=== PATIENT | female | born 1970 | race Caucasian/White ===

== ENCOUNTER → 2020-05-23 15:07 | Outpatient (BNVA) | payer MEDICAID, SELFPAY | PROVIDERS: PCP Internal Medicine; Referring Provider Internal Medicine; Visit Provider Internal Medicine Cardiovascular Disease | DX: I25.10 Atherosclerotic heart disease of native coronary artery without angina pectoris (principal); R07.89 Other chest pain | CPT/HCPCS: 93005; 99212 ==

== ENCOUNTER → 2020-07-07 14:42 | Outpatient (BNVA) | payer MEDICAID, SELFPAY | PROVIDERS: PCP Internal Medicine; Visit Provider Internal Medicine Cardiovascular Disease ==

== ENCOUNTER → 2020-07-11 14:34 | Outpatient (BNVA) | payer MEDICAID, SELFPAY | PROVIDERS: PCP Internal Medicine; Visit Provider Nurse Practitioner Family | DX: M46.1 Sacroiliitis, not elsewhere classified (principal); M54.16 Radiculopathy, lumbar region | CPT/HCPCS: 99212 ==

== ENCOUNTER 2020-08-23 06:14 | Outpatient (REF) | payer MEDICAID, SELFPAY ==
--- NOTE | ~2020-08-23 | FL_ITS ---
EXAMINATION: XR FLUOROSCOPY WITH IMAGES CLINICAL INFORMATION: M46.1 - Sacroiliitis, not elsewhere classified COMPARISON: Fluoroscopy with images 04/28/2019 TECHNIQUE: Fluoroscopy performed by Rosy Prajapati NP. Fluoroscopy time: 0.3 minutes DAP: 3.34 Gycm2 Images: 2 FINDINGS: There are spinal needles overlying the lower aspect bilateral SI joints. There is likely some early intra-articular contrast and contrast in the overlying soft tissues. No vascular communication. FL/FL guidance in treatment room IMPRESSION: Fluoroscopy for pain management procedures.
== END 2020-08-23 06:15 | disposition home or self-care (01) ==
LOC: HO.RADIR 06:14
PROVIDERS: Visit Provider Anesthesiology
DX: M46.1 Sacroiliitis, not elsewhere classified (principal); M54.16 Radiculopathy, lumbar region
CPT/HCPCS: 27096; J3300; Q9967

== ENCOUNTER → 2020-09-15 08:25 | Outpatient (REF) | payer MEDICAID, SELFPAY ==
--- NOTE | ~2020-09-15 | NM_ITS ---
Lexiscan Myocardial perfusion study Indication: Chest pain, assess for coronary disease and ischemia Technique: The patient was brought in for a Lexiscan perfusion study on 09/15/2020 and was injected 0.4 mg of Lexiscan intravenously. Within a minute of this injection 30 mCi of sestamibi was given intravenously. Images were obtained using the SPECT gamma camera interlaced with the gating device. Images were obtained in supine position. Resting perfusion study was performed on 09/19/2020. Patient was administered 30 mCi of sestamibi intravenously at rest. Images were then obtained in supine position. Total DLP 166mGy-cm. Images were processed with the software and compared side to side in short axis, horizontal long axis and vertical long axis views. Findings: Raw acquisition was reviewed. Arms by the patient's side. The stress perfusion study showed diminished tracer uptake along the distal part of the inferolateral wall. With CT attenuation correction, this improves significantly suggestive of diaphragmatic attenuation artifact. The gated study shows normal LV systolic function with calculated LVEF of > 70%. LV cavity is normal in size. The gated study shows normal wall thickening and contraction of segments. Resting study shows no significant perfusion abnormality. Gating at rest reveals normal wall motion with ejection fraction at > 70%. The findings are consistent with no reversible or fixed perfusion abnormality. NM/NM frandy perf SPECT rest & str Impression: 1. Myocardial perfusion imaging study shows likely normal myocardial perfusion. No evidence of any ischemia or infarction. 2. Gated LVEF is > 70% during stress and rest. 3. Transient ischemic dilatation not present. EKG component of the test reported separately.
--- NOTE | 2020-09-15 08:29 | CA_ITS ---
Transthoracic Echocardiogram Patient (Last, First, Middle): Patti Avelar, Gender: Female Date of : 1970 Age: 50 Procedure Date: 09/15/2020 Procedure Type: Transthoracic Echocardiogram Location: OP Height: 170.18 cm Weight: 89.36 kg BSA: 2.01 m2 Heart Rate: bpm BP: 134 / 70 mmHg Firefighter Type One: MELANY Referring MD: Jordan Wiseman MD Symptoms: R07.89 - Other chest pain Study Quality: Technically Difficult Conclusions: - Essentially normal study with grade 1 LV diastolic dysfunction Findings Left Ventricle Normal left ventricular size, thickness, and systolic function. The visually estimated ejection fraction is between 60-65%. Spectral Doppler is indicative of an impaired relaxation filling pattern. E/E prime ratio is <8, consistent with normal filling pressures. Evidence suggests grade I (mild) diastolic dysfunction. Right Ventricle Normal right ventricular cavity size and systolic function. Atria Both atria are normal in size. There is no evidence of interatrial shunt. Aortic Valve Normal aortic valve structure and function. There is no aortic valve stenosis. There is no aortic valve regurgitation. Mitral Valve Normal mitral valve structure and function. There is trace mitral valve regurgitation. There is no mitral valve stenosis. Pulmonic Valve The pulmonic valve is likely normal. Tricuspid Valve Normal tricuspid valve structure. Tricuspid regurgitation envelope is inadequate for calculation of right ventricular systolic pressure. Great Vessels All visible segments of the aorta are normal in size. The pulmonary artery was not well visualized. Venous The inferior vena cava is normal in size and collapses greater than 50% with inspiration. Pericardium/Pleural There is no evidence of pericardial effusion. Prior Study Comparison No prior study available for comparison. Measurements M-Mode Liner Measurements Normals - Women/Men AOV Cusps: 2.30 1.5-2.6 cm/m2 2D Linear Measurements IVSd: 0.89 0.6-0.9/0.6-1.0 cm LVIDd: 2.96 3.9-5.3/4.2-5.9 cm LVIDd Index: 1.47 2.4-3.2/2.2-3.1 cm/m2 LVIDs: 1.69 2.0-3.6 cm LVPWd: 0.94 0.7-1.1 cm Ao Root: 3.00 2.1-3.5 cm LA Diam: 2.90 2.7-3.8/3.0-4.0 cm LAIDs Index: 1.44 1.5-2.3 cm/m2 LV Mass: 139.54 67-162/88-224 g LV Mass Index: 69.42 43-95/49-115 g/m2 LVOT Diam: 2.20 3.0+(-)1.3 cm 2D Systolic Function EF 4C: 64.00 >55% EF BiP: 56.70 >55% Mitral Valve MV Pk E: 0.95 MV PK A: 0.94 MV Decel Time: 285.00 E/A: 1.00 E'Lateral: 12.00 E'Medial: 8.27 E/E' Med: 11.50 E/E' Lat: 7.90 PHT: 83.00 MVA PHT: 2.65 Decel Bowman: 3.33 Aortic Valve AoV Pk Odin: 1.29 AoV Pk Grad: 7.00 LVOT LVOT Pk Odin: 1.09 LVOT Mn Odin: 0.69 LVOT VTI: 0.25 LVOT Pk Grad: 5.00 LVOT Mn Grad: 2.00 LVOT Diam: 2.20 LVOT Area: 3.80 Diastolic Function MV Pk E: 0.95 MV Pk A: 0.94 E/A: 1.00 E'Medial: 8.27 E/E' Med: 11.50 E' Laterial: 12.00 E/E' Lat: 7.90 Tricuspid Valve RA Press: 3.00 Great Vessels Aorta Ao Root-2D: 3.00 2.0-3.7 cm Ao Asc: 3.40 2.1-3.4 cm Ao Arch: 2.50 Pulmonary Valve PV Pk Odin: 0.96 Peak PV Grad: 4.00 Updated in Other Vendor System with Status of Final Jordan Wiseman MD electronically signed on 09/15/2020 1:51:12 PM with status of Final
--- NOTE | 2020-09-15 08:29 | CA_ITS ---
Acquisition Time: 2020-09-15 09:25:11 Total Exercise Time: 00:02:00 Test Indications: I25.10, R07.89 Medications: SEE CHART Protocol: LEXISCAN Max HR: 117 BPM 69% of Pred: 169 BPM Max BP: 124/070 mmHG Max Work Load: 1.0 METS Pharmacological stress test using Lexiscan while sitting and kicking her feet. Pt tolerated well, denies any anginal sx. EKG with no arrhythmias, non-diagnostic for ischemia. Nuclear images to follow. Normotensive response to test. Test reviewed with Dr. Underwood. Referred By: Jordan Wiseman Overread By: Lauryn Weiner NP
== END ==
LOC: HO.CARD 08:25
PROVIDERS: Visit Provider Internal Medicine Cardiovascular Disease
DX: R07.89 Other chest pain (principal); I25.10 Atherosclerotic heart disease of native coronary artery without angina pectoris; I10 Essential (primary) hypertension
CPT/HCPCS: 78452; 93017; 93306; A9500; J0280; J2785

== ENCOUNTER → 2020-09-22 13:46 | Outpatient (BNVA) | payer MEDICAID, SELFPAY | PROVIDERS: Visit Provider Nurse Practitioner Family ==

== ENCOUNTER → 2020-10-12 11:34 | Outpatient (BNVA) | payer MEDICAID, SELFPAY | PROVIDERS: PCP Internal Medicine; Visit Provider Nurse Practitioner Family ==

== ENCOUNTER → 2020-10-26 11:32 | Outpatient (BNVA) | payer MEDICAID, SELFPAY | PROVIDERS: PCP Internal Medicine; Visit Provider Nurse Practitioner Family | DX: R07.89 Other chest pain (principal); I25.10 Atherosclerotic heart disease of native coronary artery without angina pectoris; I10 Essential (primary) hypertension; E78.5 Hyperlipidemia, unspecified; Z95.5 Presence of coronary angioplasty implant and graft | CPT/HCPCS: 99212 ==

== ENCOUNTER 2021-04-04 14:34 | Outpatient (REF) | payer MEDICAID, SELFPAY ==
[2021-04-04 15:56] LABS: Hematocrit 41.4 % (37-47); Hemoglobin 13.4 g/dl (12.0-16.0); Mean Corpuscular HGB Conc 32.4 g/dl (31.0-35.0); Mean Corpuscular Hemoglobin 30.1 pg (27.0-33.0); Platelet Count 269 X10*3/uL (160-400); Red Blood Count 4.45 X10*6/uL (4.20-5.50); Red Cell Distribution Width 13.8 % (11.0-16.0); White Blood Count 9.8 X10*3/uL (4.8-10.8)
[2021-04-04 16:10] LABS: Prothrombin Time 11.8 SEC (9.9-13.0)
[2021-04-04 16:18] LABS: Anion Gap 15 (12-20); Blood Urea Nitrogen 9 mg/dL (9-16); Calcium 9.2 mg/dL (8.4-10.2); Carbon Dioxide 24 mmol/L (22-29); Chloride 103 mmol/L (96-108); Estimated Glomerular Filt Rate > 60; Glucose Random 252 mg/dL (60-115); Potassium 3.9 mmol/L (3.3-5.1); Sodium 138 mmol/L (135-145)
== END 2021-04-04 14:35 | disposition home or self-care (01) ==
LOC: HO.LAB 14:34
PROVIDERS: PCP Internal Medicine; Referring Provider Internal Medicine; Visit Provider Internal Medicine Cardiovascular Disease
DX: R07.9 Chest pain, unspecified (principal); I25.10 Atherosclerotic heart disease of native coronary artery without angina pectoris
CPT/HCPCS: 36415; 80048; 85027; 85610; 99212

== ENCOUNTER → 2021-04-25 14:31 | Outpatient (BNVA) | payer MEDICAID, SELFPAY | PROVIDERS: PCP Internal Medicine; Referring Provider Internal Medicine; Visit Provider Nurse Practitioner Family | DX: I25.10 Atherosclerotic heart disease of native coronary artery without angina pectoris (principal); I10 Essential (primary) hypertension; E78.5 Hyperlipidemia, unspecified; Z95.5 Presence of coronary angioplasty implant and graft; R07.9 Chest pain, unspecified; Z98.890 Other specified postprocedural states | CPT/HCPCS: 99212 ==

== ENCOUNTER → 2022-05-30 13:41 | Outpatient (BNVA) | payer MEDICAID, SELFPAY | PROVIDERS: PCP Internal Medicine; Visit Provider Anesthesiology | DX: M46.1 Sacroiliitis, not elsewhere classified (principal) | CPT/HCPCS: 99212 ==

== ENCOUNTER 2022-08-06 08:25 | Outpatient (REF) | payer MEDICAID, SELFPAY ==
--- NOTE | ~2022-08-06 | MM_ITS ---
EXAMINATION: MM SCREENING DIGITAL BREAST TOMOSYNTHESIS, BILATERAL CLINICAL INFORMATION: Screening. Asymptomatic. The lifetime risk of breast cancer based on the Tyrer-Cuzick Model is 8%. COMPARISON: Mammography: 01/26/2019, 12/27/2017 TECHNIQUE: Digital breast tomosynthesis is performed in both the craniocaudal and mediolateral oblique views along with computer-aided detection (CAD). Synthesized 2D images are generated from the tomosynthesis. Additional left MLO view is provided. FINDINGS: There are scattered areas of fibroglandular density (ACR BI-RADS breast composition Category b). Left breast has some ill-defined calcifications in a small chronic nodule mid lower inner quadrant. Patient will be recalled for additional imaging small chronic nodule mid lower inner quadrant. The remainder of the bilateral breasts show no significant mass or architectural abnormality or abnormal calcifications. The axilla and skin contours are unremarkable. MM/MM tomosynthesis screening BI IMPRESSION: Left: -Ill-defined calcifications within a small chronic nodule mid lower inner quadrant. Right: -No mammographic evidence of malignancy. ASSESSMENT: BI-RADS 0: Incomplete - Need Additional Imaging Evaluation RECOMMENDATION: 1. Additional views of the left breast (magnification CC, magnification LM). 2. Targeted ultrasound if warranted after review of the additional views. 3. Radiology department staff will contact the patient for additional imaging. This patient's information was entered into a reminder system with a target due date for their next mammogram.
== END 2022-08-06 08:26 | disposition home or self-care (01) ==
LOC: HO.MAMMO 08:25
PROVIDERS: PCP Internal Medicine; Visit Provider Internal Medicine
DX: Z12.31 Encounter for screening mammogram for malignant neoplasm of breast (principal)
CPT/HCPCS: 77063; 77067

== ENCOUNTER 2022-08-13 13:50 | Outpatient (REF) | payer MEDICAID, SELFPAY ==
--- NOTE | ~2022-08-13 | MM_ITS ---
EXAMINATION: MM DIAGNOSTIC DIGITAL MAMMOGRAPHY, LEFT US ULTRASOUND BREAST, LEFT CLINICAL INFORMATION: Recall from screening for ill-defined calcifications within a small chronic nodule mid lower inner left breast. COMPARISON: Mammography: 08/06/2022, 01/26/2019, 12/27/2017, ultrasound left breast 01/26/2019. TECHNIQUE: Digital mammography is performed in the following views: Magnification left CC, magnification left LM, magnification left MLO. Ultrasound left breast is targeted to the lower and inner quadrants. Grayscale imaging and color Doppler are performed without and with harmonics. FINDINGS: There are scattered areas of fibroglandular density (ACR BI-RADS breast composition Category b). The magnification views show a few small round calcifications within the chronic nodule lower inner left breast. No layering of calcifications. No developing density. Ultrasound left breast demonstrates a 3 mm acorn cyst 9:00 position 6 cm from nipple possibly ultrasound correlate. No associated color flow. Results are discussed with the patient at time of visit. Management plan is for short interval diagnostic left mammography to include magnification views in 6 months. Ultrasound if warranted. MM/MM tomosynthesis added views L IMPRESSION: -Small probable benign calcifications within the chronic nodule lower inner left breast. -Small acorn cyst on targeted ultrasound, possibly ultrasound correlate. ASSESSMENT: BI-RADS 3: Probably Benign RECOMMENDATION: Diagnostic left mammography in 6 months. This patient's information was entered into a reminder system with a target due date for their next mammogram.
== END 2022-08-13 13:51 | disposition home or self-care (01) ==
LOC: HO.MAMMO 13:50
PROVIDERS: Visit Provider Internal Medicine
DX: R92.1 Mammographic calcification found on diagnostic imaging of breast (principal)
CPT/HCPCS: 76642; 77061; 77065

== ENCOUNTER 2023-02-20 13:59 | Outpatient (REF) | payer MEDICAID, SELFPAY ==
--- NOTE | ~2023-02-20 | MM_ITS ---
EXAMINATION: MM DIAGNOSTIC DIGITAL BREAST TOMOSYNTHESIS, LEFT CLINICAL INFORMATION: 6 month follow-up for probably benign calcifications situated within a small oval nodule, left breast, lower inner quadrant. COMPARISON: Mammography: 08/13/2022, 08/06/2022, 01/26/2019, 12/27/2017. TECHNIQUE: Digital left breast tomosynthesis is performed in both the craniocaudal and mediolateral oblique views along with computer-aided detection (CAD). Synthesized 2D images are generated from the tomosynthesis. In addition, 2-D spot magnification left CC and LM views were performed. FINDINGS: There are scattered areas of fibroglandular density (ACR BI-RADS breast composition Category b). There is a stable and unchanged small oval density in the far lower inner quadrant left breast with some associated punctate microcalcifications, entirely unchanged from prior. Finding remains probably benign. No suspicious findings in the remainder of the left breast, with stable parenchymal pattern. MM/MM tomosynthesis diagnostic LT IMPRESSION: Stable benign calcifications within an underlying small oval density in the far lower inner quadrant of the left breast. Recommend six-month interval follow-up left breast mammography to include standard magnification views, when the patient is due for bilateral screening. ASSESSMENT: BI-RADS BI-RADS 3 - Probably benign finding(s) - 6 month follow-up suggested RECOMMENDATION: 6 Month F/U Results were provided to the patient at time of visit by the technologist. This patient's information was entered into a reminder system with a target due date for their next mammogram.
== END 2023-02-20 14:00 | disposition home or self-care (01) ==
LOC: HO.MAMMO 13:59
PROVIDERS: PCP Internal Medicine; Visit Provider Internal Medicine
DX: R92.1 Mammographic calcification found on diagnostic imaging of breast (principal)
CPT/HCPCS: 77061; 77065

== ENCOUNTER → 2023-02-20 14:00 | Outpatient (BNV) | payer MEDICAID, SELFPAY | PROVIDERS: PCP Internal Medicine; Visit Provider Radiology Diagnostic Radiology | DX: R92.1 Mammographic calcification found on diagnostic imaging of breast (principal) | CPT/HCPCS: 77061; 77065 ==

== ENCOUNTER 2023-03-13 | Outpatient (REF) | payer MEDICAID, SELFPAY ==
[2023-03-13 14:48] LABS: MANUAL DIFF FLAG NO
[2023-03-13 15:07] LABS: Basophils Absolute Auto 0.1 X10*3/uL (0.0-0.2); Basophils Percent Auto 0.9 % (0-2); Eosinophils Absolute Auto 0.3 X10*3/uL (0.0-0.4); Hematocrit 38.5 % (37.0-47.0); Hemoglobin 12.1 g/dl (12.0-16.0); Imm Gran Abs Auto 0.02 X10*3/uL (0.00-0.03); Imm Gran Pct Auto 0.2 % (0.0-0.4); Lymphocytes Absolute Auto 2.2 X10*3/uL (1.2-4.9); Lymphocytes Percent Auto 24.6 % (20-40); Mean Corpuscular HGB Conc 31.4 g/dl (31.0-35.0); Mean Corpuscular Hemoglobin 29.4 pg (27.0-33.0); Mean Corpuscular Volume 93.4 fL (80.0-98.0); Mean Platelet Volume 10.3 fL (9.4-12.3); Monocytes Absolute Auto 0.5 X10*3/uL (0.1-1.2); Monocytes Percent Auto 5.5 % (2-11); Neutrophils Percent Auto 65.8 % (45-73); Platelet Count 308 X10*3/uL (160-400); Red Blood Count 4.12 X10*6/uL (4.20-5.50); Red Cell Distribution Width 13.3 % (11.0-16.0)
[2023-03-13 15:19] LABS: Alanine Aminotransferase 30 U/L (0-31); Albumin Level 4.4 g/dL (3.5-5.0); Alkaline Phosphatase 76 U/L (39-117); Anion Gap 13 (12-20); Aspartate Amino Transferase 23 U/L (5-31); Bilirubin Direct 0.2 mg/dL (0.0-0.5); Bilirubin Total 0.4 mg/dL (0.0-1.0); Blood Urea Nitrogen 17 mg/dL (9-16); Calcium 9.5 mg/dL (8.4-10.2); Carbon Dioxide 26 mmol/L (22-29); Chloride 106 mmol/L (96-108); Estimated Glomerular Filt Rate 47; Glucose Random 182 mg/dL (60-115); Sodium 141 mmol/L (135-145); Total Protein 7.4 g/dL (6.5-8.0)
[2023-03-13 15:26] LABS: Estimated Average Glucose 229 mg/dL; Hemoglobin A1c % 9.6 % (<6.0)
[2023-03-13 15:58] LABS: Erythrocyte Sedimentation Rate 12 MM/HR (0-20)
== END 2023-03-13 00:01 ==
LOC: HO.CHCLDS
PROVIDERS: Visit Provider Internal Medicine
DX: E11.65 Type 2 diabetes mellitus with hyperglycemia (principal); M54.16 Radiculopathy, lumbar region; Z79.4 Long term (current) use of insulin
CPT/HCPCS: 36415; 80048; 80076; 83036; 85025; 85652; 86704; 86706; 86709; 87340

== ENCOUNTER 2023-06-27 11:01 | Outpatient (REF) | payer MEDICAID, SELFPAY ==
--- NOTE | ~2023-06-27 | XR_ITS ---
EXAMINATION: XR LUMBOSACRAL SPINE CLINICAL INFORMATION: Bilateral low back pain COMPARISON: None available. TECHNIQUE: Three views of the lumbosacral spine. FINDINGS: 5 nonrib-bearing lumbar-type vertebral bodies. No acute visible fracture or dislocation. Slight levocurvature of the mid lumbar spine. Mild to moderate multilevel degenerative changes disc space narrowing, osteophyte formation, and facet arthropathy. Suggestion of L5-S1 neuroforaminal narrowing. Vertebral body heights and disc spaces are maintained. Posterior elements are intact. Paraspinal soft tissues are unremarkable. Visualized bowel gas is unremarkable. Pelvic phleboliths are noted. Oval radiopacity in the left pelvis measuring 2.0 cm, nonspecific. XR/XR lumbar spine 2-3V IMPRESSION: 1. No acute visible fracture or dislocation. 2. Slight levocurvature of the mid lumbar spine. 3. Mild to moderate multilevel degenerative changes with suggestion of L5-S1 neuroforaminal narrowing.
== END 2023-06-27 11:02 | disposition home or self-care (01) ==
LOC: HO.HHCX 11:01
PROVIDERS: Visit Provider Student in an Organized Health Care Education/Training Program
DX: M54.42 Lumbago with sciatica, left side (principal)
CPT/HCPCS: 72100

== ENCOUNTER 2023-09-02 13:08 | Outpatient (REF) | payer MEDICAID, SELFPAY ==
[2023-09-02 14:04] LABS: MANUAL DIFF FLAG NO
[2023-09-02 14:15] LABS: Basophils Absolute Auto 0.1 X10*3/uL (0.0-0.2); Eosinophils Absolute Auto 0.2 X10*3/uL (0.0-0.4); Eosinophils Percent Auto 2.2 % (0-4); Hematocrit 41.6 % (37.0-47.0); Hemoglobin 13.4 g/dl (12.0-16.0); Imm Gran Abs Auto 0.04 X10*3/uL (0.00-0.03); Imm Gran Pct Auto 0.4 % (0.0-0.4); Lymphocytes Absolute Auto 2.6 X10*3/uL (1.2-4.9); Lymphocytes Percent Auto 23.3 % (20-40); Mean Corpuscular HGB Conc 32.2 g/dl (31.0-35.0); Mean Corpuscular Hemoglobin 29.6 pg (27.0-33.0); Mean Platelet Volume 9.9 fL (9.4-12.3); Monocytes Absolute Auto 0.6 X10*3/uL (0.1-1.2); Monocytes Percent Auto 5.6 % (2-11); Neutrophils Absolute Auto 7.5 x10*3/uL (2.0-8.3); Neutrophils Percent Auto 67.5 % (45-73); Platelet Count 362 X10*3/uL (160-400); Red Blood Count 4.52 X10*6/uL (4.20-5.50); Red Cell Distribution Width 13.4 % (11.0-16.0); White Blood Count 11.1 X10*3/uL (4.8-10.8)
[2023-09-02 15:06] LABS: Alanine Aminotransferase 34 U/L (0-31); Albumin Level 4.6 g/dL (3.5-5.0); Alkaline Phosphatase 70 U/L (39-117); Anion Gap 14 (12-20); Aspartate Amino Transferase 26 U/L (5-31); Bilirubin Total 0.4 mg/dL (0.0-1.0); Blood Urea Nitrogen 16 mg/dL (9-16); Calcium 9.7 mg/dL (8.4-10.2); Carbon Dioxide 23 mmol/L (22-29); Chloride 107 mmol/L (96-108); Cholesterol 174 mg/dL (<200); Estimated Glomerular Filt Rate 48; Glucose Random 154 mg/dL (60-115); HDL Cholesterol 34 mg/dL (>40); LDL Cholesterol Calculated 83 mg/dL (<100); Sodium 140 mmol/L (135-145); Total Protein 7.7 g/dL (6.5-8.0); Triglycerides 286 mg/dL (<150)
[2023-09-02 15:25] LABS: TSH reflex Free T4 3.06 uIU/mL (0.32-4.0)
[2023-09-03 08:27] LABS: ~HepC Num1 0.08 S/CO (0.00-0.79); ~Hepatitis C Antibody Nonreactive (Nonreactive)
== END 2023-09-02 13:09 | disposition home or self-care (01) ==
LOC: HO.CHCLDS 13:08
PROVIDERS: Visit Provider Internal Medicine
DX: Z00.00 Encounter for general adult medical examination without abnormal findings (principal); E11.65 Type 2 diabetes mellitus with hyperglycemia; Z79.4 Long term (current) use of insulin
CPT/HCPCS: 36415; 80053; 80061; 84443; 85025; 86803

== ENCOUNTER 2024-04-15 09:39 | Outpatient (REF) | payer MEDICAID, SELFPAY ==
[2024-04-15 12:21] LABS: Estimated Average Glucose 226 mg/dL; Hemoglobin A1C 242.1095 umol/L; Hemoglobin A1c % 9.5 % (<6.0); Total Hemoglobin (HGBA1C) 3017.1307 umol/L
== END 2024-04-15 09:40 | disposition home or self-care (01) ==
LOC: HO.HHCL 09:39
PROVIDERS: Visit Provider Internal Medicine
DX: E11.65 Type 2 diabetes mellitus with hyperglycemia (principal); Z79.4 Long term (current) use of insulin
CPT/HCPCS: 36415; 83036

== ENCOUNTER → 2024-05-01 09:54 | Outpatient (REF) | payer MEDICAID, SELFPAY | LOC: HO.CARD 09:54 | PROVIDERS: PCP Internal Medicine; Visit Provider Nurse Practitioner Family | DX: Z13.89 Encounter for screening for other disorder (principal) ==

== ENCOUNTER 2024-08-27 14:51 | Outpatient (REF) | payer MEDICAID, SELFPAY ==
[2024-08-27 17:43] LABS: MANUAL DIFF FLAG NO
[2024-08-27 18:03] LABS: Basophils Absolute Auto 0.1 X10*3/uL (0.0-0.2); Basophils Percent Auto 1.1 % (0-2); Eosinophils Absolute Auto 0.2 X10*3/uL (0.0-0.4); Eosinophils Percent Auto 2.1 % (0-4); Hemoglobin 11.6 g/dl (12.0-16.0); Imm Gran Abs Auto 0.07 X10*3/uL (0.00-0.03); Imm Gran Pct Auto 0.6 % (0.0-0.4); Lymphocytes Absolute Auto 2.9 X10*3/uL (1.2-4.9); Lymphocytes Percent Auto 26.1 % (20-40); Mean Corpuscular HGB Conc 32.2 g/dl (31.0-35.0); Mean Corpuscular Hemoglobin 29.4 pg (27.0-33.0); Mean Corpuscular Volume 91.1 fL (80.0-98.0); Mean Platelet Volume 10.1 fL (9.4-12.3); Monocytes Absolute Auto 0.7 X10*3/uL (0.1-1.2); Monocytes Percent Auto 5.8 % (2-11); Neutrophils Absolute Auto 7.2 x10*3/uL (2.0-8.3); Neutrophils Percent Auto 64.3 % (45-73); Platelet Count 374 X10*3/uL (160-400); Red Blood Count 3.95 X10*6/uL (4.20-5.50); Red Cell Distribution Width 13.8 % (11.0-16.0); White Blood Count 11.2 X10*3/uL (4.8-10.8)
[2024-08-27 18:16] LABS: Alanine Aminotransferase 55 U/L (0-31); Albumin Level 4.4 g/dL (3.5-5.0); Alkaline Phosphatase 87 U/L (39-117); Anion Gap 14 (12-20); Aspartate Amino Transferase 49 U/L (5-31); Bilirubin Total 0.4 mg/dL (0.0-1.0); Blood Urea Nitrogen 23 mg/dL (9-16); Calcium 9.5 mg/dL (8.4-10.2); Carbon Dioxide 23 mmol/L (22-29); Chloride 106 mmol/L (96-108); Cholesterol 138 mg/dL (<200); Estimated Glomerular Filt Rate 40; Glucose Random 145 mg/dL (60-115); HDL Cholesterol 29 mg/dL (>40); LDL Cholesterol Calculated 52 mg/dL (<100); Potassium 4.1 mmol/L (3.3-5.1); Sodium 139 mmol/L (135-145); Total Protein 7.8 g/dL (6.5-8.0); Triglycerides 286 mg/dL (<150)
[2024-08-27 18:26] LABS: TSH reflex Free T4 2.06 uIU/mL (0.32-4.0)
--- OUTSIDE RECORDS SUMMARY | 2024-08-27 18:37 | XMS_ITS | Encounter Summary ---
Author Organization [employer] Address [address] [place] [id number] Care Team Providers Care Electroplating Sales Representative Name Role Phone Ann Castellon MD Primary Care Provider [phone] Reason for Visit * Reason Onset Date Comments returning call 06/25/2022 Encounter Details Date Type Department Care Team ([facility] st Contact Info) Description 06/25/2022 Telephone [facility] [address], [place] [phone] Ann Castellon MD [address] [place] [phone] returning call Social History Tobacco Use Types Packs/Day Years Used Date Smoking Tobacco: Never Assessed Comments Unknown Sex and Gender Information Value Date Recorded Sex Assigned at Female 04/16/2022 10:19 AM EDT Legal Sex Female 10:19 AM EDT Gender Identity Female 04/16/2022 10:19 AM EDT Sexual Orientation Straight 04/16/2022 10 :19 AM EDT documented as of this encounter Miscellaneous Notes * Telephone Encounter - Atul Naylor - 06/25/2022 10:47 AM EST Tc from pt returning call Please contact pt at [phone] documented in this encounter Plan of Treatment Not on file documented as of this encounter Visit Diagnoses Not on filedocumented in this encounter Care Teams Electroplating Sales Representative Relationship Specialty Start Date End Date Ann Castellon MD [address] [place] [address] PCP - General Internal Medicine 05/29/17 documented as of this encounter
--- OUTSIDE RECORDS SUMMARY | 2024-08-27 18:37 | XMS_ITS | Encounter Summary ---
Author Organization [employer] Address [address] [facility] [address] [place] [address] Care Team Providers Care Examiner Of Currency Name Role Phone Ann Castellon MD Primary Care Provider [phone] Encounter Details Date Type Department Care Team (Late st Contact Info) Description 02/06/2023 Orders Only [facility] [address] [place], [place] [phone] Ann Castellon MD [address] [place] [address] Type 2 diabetes mellitus with hyperglycemia, with long-term current use of insulin ([facility]) (Primary Dx) Social History Tobacco Use Types Packs/Day Years Used Date Smoking Tobacco: Former Cigarettes 0.3 40 Smokeless Tobacco: Never Depression Answer Date Recorded Patient Health Questionnaire-9 Score 2 07/03/2022 Depression Answer Date Recorded Patient Health Questionnaire-2 Score 0 07/03/2022 Comments Unknown Sex and Gender Information Value Date Recorded Sex Assigned at Female 04/16/2022 10:19 AM EDT Legal Sex Female 10:19 AM EDT Gender Identity Female 04/16/2022 10:19 AM EDT Sexual Orientation Straight 04/16/2022 10 :19 AM EDT documented as of this encounter Miscellaneous Notes * Result Encounter Note - Ann Castellon MD - 02/06/2023 4:26 PM EDT Please schedule the annual physical of Ms Patti Avelar. She is overdue for many of her care gaps. documented in this encounter Plan of Treatment Not on file documented as of this encounter Procedures Procedure Name Priority Date/Time Associated Diagnosis Comments HEMOGLOBIN A1C Routine 03/13/2023 10:46 AM EDT Type 2 diabetes mellitus with hyperglycemia, with long-term current use of insulin ([facility]) BI MAMMOGRAM DIAGNOSTIC TOMOSYNTHESIS LEFT Routine 02/20/2023 2:20 PM EDT documented in this encounter Results * (ABNORMAL) Hemoglobin A1c (03/13/2023 10:46 AM EDT) Hemoglobin A1c 9.6(H) <6.0 % [facility] Comment:Hemoglobin A1C Refer ence Range Adults: 4.8 - 6.0 % Non diabetic: < 6.0 % Goal: < 7.0 %Additional Action Suggested: > 8.0 %Note: Hemoglobin A1c results are invalid for patients with abnormal amounts of HbF. Blood transfusions may impact the HbA1c concentration in the patient sample. Estimated Average Glucose 229 mg/dL [facility] Comment:eAG = Estimated ave rage glucose which is %A1C expressed asaverage glucose, using the formula of the E5G-HtnrcdiDwdjsmr Glucose study (ADAG), Diabetes Care, Vol.31,#8,Aug. 2007 Blood Venous blood specimen / Unknown 03/13/2023 10:46 AM EDT 03/13/2023 2:42 PM EDT Ann Castellon MD LAB BLOOD ORDERABLES Final Result [facility] [address] [place] [phone] * BI Mammogram Diagnostic Tomosynthesis Left (02/20/2023 2:20 PM EDT) Anatomical Region Laterality Modality Breast Left Mammography 02/20/2023 2:20 PM EDT Narrative 02/20/2023 2:44 PM EDT ? [facility] ? [address] ?[place] [address] ? Mammography Report ? Signed ? Patient: Avelar,Patti ?MR#: [id number] ?? 57 ? : 1970 ?Acct:[id number] ? Age/Sex: 52 / F ?ADM Date: 02/20/23 ? Loc: HO.MAMMO ? Attending Dr: Ann Castellon MD ? Ordering Physician: Ann Castellon MD ?Results: 3.6MProbably Benign Finding - Short 6 M F/U ?? Suggested ? Date of Service: 02/20/23 ?Follow Up: 6 Month F/U ? Procedure(s): MM tomosynthesis diagnostic LT ?? Accession Number(s): [id number] ? cc: Ann Castellon MD ? EXAMINATION: ?? MM DIAGNOSTIC DIGITAL BREAST TOMOSYNTHESIS, LEFT ? CLINICAL INFORMATION: ? 6 month follow-up for probably benign calcifications situated within a ?? small oval nodule, left breast, lower inner quadrant. ? COMPARISON: ?? Mammography: 08/13/2022, 08/06/2022, 01/26/2019, 12/27/2017. ? TECHNIQUE: ?? Digital left breast tomosynthesis is performed in both the craniocaudal ?? and mediolateral oblique views along with computer-aided detection ?? (CAD). Synthesized 2D images are generated from the tomosynthesis. In ?? addition, 2-D spot magnification left CC and LM views were performed. ? FINDINGS: ?? There are scattered areas of fibroglandular density (ACR BI-RADS breast ?? composition Category b). ? There is a stable and unchanged small oval density in the far lower ?? inner quadrant left breast with some associated punctate ?? microcalcifications, entirely unchanged from prior. ??Finding remains ?? probably benign. ? No suspicious findings in the remainder of the left breast, with stable ?? parenchymal pattern. ? MM/MM tomosynthesis diagnostic LT ?? IMPRESSION: ?? Stable benign calcifications within an underlying small oval density in ?? the far lower inner quadrant of the left breast. Recommend six-month ?? interval follow-up left breast mammography to include standard ?? magnification views, when the patient is due for bilateral screening. ? ASSESSMENT: ? BI-RADS BI-RADS 3 - Probably benign finding(s) - 6 month follow-up ?? suggested ? RECOMMENDATION: ?? 6 Month F/U ? Results were provided to the patient at time of visit by the ?? technologist. ? This patient's information was entered into a reminder system with a ?? target due date for their next mammogram. ? Dictated By: ?Salomon Simpson MD ? Signed By: ?<Electronically signed by Salomon Simpson MD in OV> ?02/20/23 1440 ? DD/ 1420 ? TD/TT: ? Night Shift Manager: ? Procedure Note Jessica Dominguez - 02/21/2023 [facility] [address] [place] [address] Dr. Flores, ARNOLDO [address] Mammography Report Signed Patient: Patti AvelarMR#: [id number] 57 : 1970Acct:[id number] Age/Sex: 52 / FADM Date: 02/20/23 Loc: HO.MAMMO Attending Dr: Ann Castellon MD Ordering Physician: Ann Castellon MD Results: 3.6MProbably Benign Finding - Short 6 M F/U Suggested Date of Service: 02/20/23Follow Up: 6 Month F/U Procedure(s): MM tomosynthesis diagnostic LT Accession Number(s): [id number] cc: Ann Castellon MD EXAMINATION: MM DIAGNOSTIC DIGITAL BREAST TOMOSYNTHESIS, LEFT CLINICAL INFORMATION: 6 month follow-up for probably benign calcifications situated within a small oval nodule, left breast, lower inner quadrant. COMPARISON: Mammography: 08/13/2022, 08/06/2022, 01/26/2019, 12/27/2017. TECHNIQUE: Digital left breast tomosynthesis is performed in both the craniocaudal and mediolateral oblique views along with computer-aided detection (CAD). Synthesized 2D images are generated from the tomosynthesis. In addition, 2-D spot magnification left CC and LM views were performed. FINDINGS: There are scattered areas of fibroglandular density (ACR BI-RADS breast composition Category b). There is a stable and unchanged small oval density in the far lower inner quadrant left breast with some associated punctate microcalcifications, entirely unchanged from prior. Finding remains probably benign. No suspicious findings in the remainder of the left breast, with stable parenchymal pattern. MM/MM tomosynthesis diagnostic LT IMPRESSION: Stable benign calcifications within an underlying small oval density in the far lower inner quadrant of the left breast. Recommend six-month interval follow-up left breast mammography to include standard magnification views, when the patient is due for bilateral screening. ASSESSMENT: BI-RADS BI-RADS 3 - Probably benign finding(s) - 6 month follow-up suggested RECOMMENDATION: 6 Month F/U Results were provided to the patient at time of visit by the technologist. This patient's information was entered into a reminder system with a target due date for their next mammogram. Dictated By: Salomon Simpson MD Signed By: <Electronically signed by Salomon Simpson MD in OV> 02/20/23 1440 DD/ 1420 TD/TT: Night Shift Manager: us Ann Castellon MD IMG BI PROCEDURES Edited Re sult - Final documented in this encounter Visit Diagnoses Diagnosis Type 2 diabetes mellitus with hyperglycemia, with long-term current use of insulin ([facility])- Primary documented in this encounter Additional Health Concerns Assessment Noted Time PHQ-9 Depression Total Score: 2 07/03/19 23 10:01 AM EST documented as of this encounter Care Teams Examiner Of Currency Relationship Specialty Start Date End Date Ann Castellon MD [address] [place] [phone] PCP - General Internal Medicine 05/29/17 documented as of this encounter
--- OUTSIDE RECORDS SUMMARY | 2024-08-27 18:37 | XMS_ITS | Encounter Summary ---
Author Organization [employer] Address [address] [facility] 7[address] [place] [address] Care Team Providers Care Dry Transfer Worker Name Role Phone Ann Castellon MD Primary Care Provider [phone] Reason for Visit * Reason Comments Med Refill Encounter Details Date Type Department Care Team ([facility] st Contact Info) Description 08/05/2024 Refill [facility] CHC MED & PEDS [address] [place], [place] [phone] Ann Castellon MD [address] [place] [address] Hypercholesterolemia Social History Tobacco Use Types Packs/Day Years Used Date Smoking Tobacco: Every Day Cigarettes 0.3 40 Passive Smoke Exposure: Current Smokeless Tobacco: Never Comments:7-8 cigarettes a da y Alcohol Use Standard Drinks/Week Comments Never 0 (1 standard drink = 0.6 oz pur e alcohol) Depression Answer Date Recorded Patient Health Questionnaire-9 Score 9 04/29/2024 Patient Health Questionnaire-9 Score 9 04/29/2024 Last PHQ-9: Questionnaire Data Not on file 1 06/29/2023 Housing Stability Answer Date Recorded What is your housing situation today? I have joann hernandez 08/16/[address] you li ve. Do you have problems with any of the following? Pests such as bugs, ants, or mice 08/16/2023 Food Insecurity Answer Date Recorded Within the past 12 months, y ou worried that your food would run out before you got money to buy more: Never True 08/16/2023 Within the past 12 months,th e food you bought just didn't last and you didn't have enough money to get more: Never True 06/2023 Transportation Answer Date Recorded In the past 12 months, has l ack of transportation kept you from medical appts, meetings, work or from getting things needed for daily living? Yes, it has kept me from medical appointments or getting medications. 08/16/2023 Utilities Answer Date Recorded In the past 12 months, has t he electric, gas, oil or water company threatened to shut off services in your home? No 08/16/2023 Depression Answer Date Recorded Patient Health Questionnaire-2 Score 2 04/29/2024 Comments No Sex and Gender Information Value Date Recorded Sex Assigned at Female 04/16/2022 10:19 AM EDT Legal Sex Female 10:19 AM EDT Gender Identity Female 04/16/2022 10:19 AM EDT Sexual Orientation Straight 04/16/2022 10 :19 AM EDT documented as of this encounter Plan of Treatment Not on file documented as of this encounter Visit Diagnoses Diagnosis Hypercholesterolemia Pure hypercholesterolemia documented in this encounter Additional Health Concerns Assessment Noted Time PHQ-9 Depression Total Score: 9 04/29/20 24 10:50 AM EST documented as of this encounter Care Teams Dry Transfer Worker Relationship Specialty Start Date End Date Ann Castellon MD [address] [place] [id number] PCP - General Internal Medicine 05/29/17 documented as of this encounter
--- OUTSIDE RECORDS SUMMARY | 2024-08-27 18:37 | XMS_ITS | Encounter Summary ---
Author Organization [employer] Address [address] [facility] 7t [place] [address] Care Team Providers Care Buffing Machine Operator Semiautomatic Name Role Phone Ann Castellon MD Primary Care Provider [phone] Reason for Visit * Reason Comments Med Refill Encounter Details Date Type Department Care Team ([facility] st Contact Info) Description 08/07/2024 Refill [facility] MEDICINE [address] [place] [address] Ann Castellon MD [address] [place] [address] Social History Tobacco Use Types Packs/Day Years [...] Diagnoses Not on filedocumented in this encounter Additional Health Concerns Assessment Noted Time PHQ-9 Depression Total Score: 9 04/29/20 24 10:50 AM EST documented as of this encounter Care Teams Buffing Machine Operator Semiautomatic Relationship Specialty Start Date End Date Ann Castellon MD [address] [place] [id number] PCP - General Internal Medicine 05/29/17 documented as of this encounter
--- OUTSIDE RECORDS SUMMARY | 2024-08-27 18:37 | XMS_ITS | Encounter Summary ---
Author Organization [employer] Address [address] [facility] [address] [place] [address] Care Team Providers Care Zigzag Elastic Attacher Name Role Phone Ann Castellon MD Primary Care Provider [phone] Encounter Details Date Type Department Care Team (Latest Contact Info) Description 08/27/2024 Travel Social History Tobacco Use Types Packs/Day Years [...] housing situation today? I have joann hernandez 08/20/[address] you li ve. Do you have problems with any of the following? None of the above 08/20/2024 Food Insecurity Answer Date Recorded Within the past 12 months, y ou worried that your food would run out before you got money to buy more: Never True 08/20/2024 Within the past 12 months,th e food you bought just didn't last and you didn't have enough money to get more: Never True 11/2024 Transportation Answer Date Recorded In the past 12 months, has l ack of transportation kept you from medical appts, meetings, work or from getting things needed for daily living? No 08/20/2024 Utilities Answer Date Recorded In the past 12 months, has t he electric, gas, oil or water company threatened to shut off services in your home? No 08/20/2024 Depression Answer Date Recorded Patient Health Questionnaire-2 Score 2 04/29/2024 Internet Access Answer Date Recorded Internet Access Q1 Yes 08/20/2024 Internet Access Q2 Not on file 08/20/2024 Comments No Sex and Gender Information Value [...] documented as of this encounter Care Teams Zigzag Elastic Attacher Relationship Specialty Start Date End Date Ann Castellon MD [address] [place] [address] PCP - General Internal Medicine 05/29/17 documented as of this encounter
--- OUTSIDE RECORDS SUMMARY | 2024-08-27 18:37 | XMS_ITS | Encounter Summary ---
Author Organization [employer] Address [address] [place] [address] [address] [place] [address] Care Team Providers Care Box Maker Name Role Phone Ann Castellon MD Primary Care Provider [phone] Encounter Details Date Type Department Care Team (Late st Contact Info) Description 05/30/2022 Abstract [facility] MEDICINE [address] [place] [address] ProviderAnnabelle MD Social History Tobacco Use Types Packs/Day Years [...] on filedocumented in this encounter Care Teams Box Maker Relationship Specialty Start Date End Date Ann Castellon MD [address] [place] [address] PCP - General Internal Medicine 05/29/17 documented as of this encounter
--- OUTSIDE RECORDS SUMMARY | 2024-08-27 18:37 | XMS_ITS | Encounter Summary ---
Author Organization [employer] Address [address] [facility] 7t [place] [address] Care Team Providers Care Press Room Supervisor Name Role Phone Ann Castellon MD Primary Care Provider [phone] Reason for Visit * Reason Comments Med Refill Encounter Details Date Type Department Care Team ([facility] st Contact Info) Description 08/07/2024 Refill [facility] CHC MED & PEDS [address] [place], [place] [phone] Ann Castellon MD [address] [place] [address] Type 2 diabetes mellitus with diabetic polyneuropathy, with long-term current use of insulin ([facility]) Social History Tobacco Use Types Packs/Day Years [...] as of this encounter Visit Diagnoses Diagnosis Type 2 diabetes mellitus with diabetic polyneuropathy, with long-term current use of insulin ([facility]) documented in this encounter Additional Health Concerns Assessment Noted Time PHQ-9 Depression Total Score: 9 04/29/20 24 10:50 AM EST documented as of this encounter Care Teams Press Room Supervisor Relationship Specialty Start Date End Date Ann Castellon MD [address] [place] [address] PCP - General Internal Medicine 05/29/17 documented as of this encounter
--- OUTSIDE RECORDS SUMMARY | 2024-08-27 18:37 | XMS_ITS | Clinical Summary ---
Author Organization [employer] Address [address] [facility] [address] [place] [address] Care Team Providers Care Slurry Mixer Name Role Phone Ann Castellon MD Primary Care Provider [phone] Allergies No known active allergies Medications hydrOXYzine pamoate (Vistaril) 50 MG capsule Take 50 mg by mouth at bedtime. Active nicotine (Nicoderm, Step 3) 7 MG/24HR patch apply 1 patch by transdermal route every day Active nicotine polacrilex (Commit) 2 MG lozenge DISSOLVE ONE TABLET BY MOUTH EVERY 4 HOURS DIRECTED NEEDED. Active Salicylic Acid 3 % ointment To apply to the affected area once a day. Active venlafaxine XR (Effexor XR) 150 MG 24 hr capsule Take 150 mg by mouth in the morning. Active zolpidem (Ambien) 10 MG tablet Take 10 mg by mouth at bedtime. Active Continuous Blood Gluc Sensor (FreeStyle Dariusz 2 Sensor) [facility] Use as directed Active Continuous Blood Gluc [facility] (FreeStyle Dariusz 2 [place]) device Use as directed Active Diclofenac Sodium 1 % gelIndications:Ch ronic right shoulder pain To apply to the affected area 3 times a day 100 g 2 023 Active Diclofenac Sodium 1 % gelIndications:[place] mbar radiculopathy To apply to the affected area 3 times a day 100 g 023 Active famotidine (Pepcid) 20 MG tabletIndications :Gastroesophageal reflux disease without esophagitis Take 1 tablet (20 mg) by mouth 2 times daily. 60 tablet 11 Active Alcohol Swabs (Alcohol Prep) 70 % pads USE ONE DAILY 100 each 11 Active metFORMIN (Glucophage) 1000 MG tabletIndications :Type 2 diabetes mellitus with diabetic polyneuropathy (CMS/HCC) TAKE ONE TABLET TWICE DAILY IN THE MORNING AND AT BEDTIME 180 tablet 5 Active Pentips 32G X 4 MM misc USE ONE DAILY USE ONE DAILY 100 each 4 Active glipiZIDE (Glucotrol) 5 MG tabletIndications :Type 2 diabetes mellitus with diabetic polyneuropathy, with long-term current use of insulin (CMS/HCC) TAKE ONE TABLET THREE TIMES DAILY IN THE MORNING, AT NOON, AND AT BEDTIME BEFORE MEALS 270 tablet 2 Active metoprolol succinate XL (Toprol-XL) 25 MG 24 hr tabletIndications :Essential (primary) hypertension TAKE ONE TABLET EVERY MORNING 90 tablet 3 Active Aspirin Adult Low Strength 81 MG EC tablet TAKE ONE TABLET EVERY MORNING 90 tablet 3 Active hydrALAZINE (Apresoline) 10 MG tabletIndications :Essential (primary) hypertension TAKE ONE TABLET THREE TIMES DAILY IN THE MORNING, AT NOON, AND AT BEDTIME WITH FOOD 270 tablet 3 Active venlafaxine XR (Effexor XR) 75 MG 24 hr capsule Take 75 mg by mouth Once per day. Active clonazePAM (KlonoPIN) 1 MG tablet TAKE 1 TABLET BY MOUTH TWICE DAILY FOR ANXIETY Active divalproex (Depakote) 250 MG EC tablet TAKE 1 TABLET BY MOUTH TWICE DAILY DIRECTED Active Blood Glucose Monitoring Suppl (FreeStyle [place] Lite) w/Device kit TEST BLOOD SUGAR TWICE DAILY Active tiZANidine (Zanaflex) 2 MG tabletIndications :Muscle spasm Take 1 tablet (2 mg) by mouth every 6 (six) hours if needed for muscle spasms for up to 10 days. 30 tablet Active losartan-hydroCHL OROthiazide (Hyzaar) 100-25 MG tablet Take 1 tablet by mouth in the morning. 90 tablet 3 Active lidocaine (Lidoderm) 5 % patchIndications: Lumbar radiculopathy APPLY 1 PATCH TO SKIN. LEAVE ON FOR 12 HOURS, THEN OFF FOR 12 HOURS DIRECTED. 30 patch 2 Active ketorolac (Acular) 0.5 % ophthalmic solution Active loratadine (Claritin) 10 MG tablet TAKE ONE TABLET BY MOUTH EVERY MORNING 90 tablet 1 Active Lantus SoloStar 100 UNIT/ML penIndications:Ty pe 2 diabetes mellitus with hyperglycemia ([facility]) INJECT 40 UNITS SUBCUTANEOUSLY EVERY NIGHT AT BEDTIME 15 mL 11 Active amitriptyline (Elavil) 10 MG tabletIndications :Type 2 diabetes mellitus with diabetic polyneuropathy ([facility]) TAKE ONE TABLET EVERY NIGHT AT BEDTIME 30 tablet 5 024 Active atorvastatin (Lipitor) 80 MG tabletIndications :Hypercholesterol emia TAKE ONE TABLET EVERY MORNING 30 tablet Active fenofibrate micronized (LoFibra) 134 MG capsule TAKE ONE CAPSULE EVERY MORNING WITH FOOD 90 capsule 1 025 Active isosorbide mononitrate ER (Imdur) 60 MG 24 hr tablet TAKE ONE TABLET EVERY MORNING 90 tablet 3 025 Active FREESTYLE LITE test strip TEST BLOOD SUGAR THREE TIMES DAILY 250 strip 025 Active gabapentin (Neurontin) 800 MG tablet TAKE ONE TABLET THREE TIMES DAILY THREE TIMES DAILY IN THE MORNING, AT NOON, AND AT BEDTIME 90 tablet 2 025 Active Trulicity 4.5 MG/0.5ML solution auto-injectorIndi cations:Type 2 diabetes mellitus with diabetic polyneuropathy, with long-term current use of insulin ([facility]) INJECT ONE PEN (=4.5MG) SUBCUTANEOUSLY ONCE A WEEK DIRECTED 2 mL 025 Active cephalexin (Keflex) 500 MG capsuleIndication s:Paronychia of finger of right hand Take 1 capsule (500 mg) by mouth 3 times daily for 10 days. 30 capsule 025 2024 Active fluconazole (Diflucan) 150 MG tabletIndications :Paronychia of finger of right hand 1 tablet once for 2 weeks 2 tablet 025 Active bisacodyl (Dulcolax) 5 MG EC tabletIndications :Other constipation Take 1 tablet (5 mg) by mouth if needed each day for constipation. Do not crush, chew, or split. 30 tablet 025 2024 Active Trulicity 4.5 MG/0.5ML solution pen-injectorIndic ations:Type 2 diabetes mellitus with diabetic polyneuropathy, with long-term current use of insulin (CMS/HCC) Inject one pen (=4.5mg) subcutaneously once a week 4 mL 11 024 2024 Discontinued isosorbide mononitrate ER (Imdur) 60 MG 24 hr tablet TAKE ONE TABLET EVERY MORNING 90 tablet 3 024 2024 Discontinued FREESTYLE LITE test strip TEST BLOOD SUGAR THREE TIMES DAILY 250 strip 3 024 2024 Discontinued atorvastatin (Lipitor) 80 MG tabletIndications :Hypercholesterol emia Take 1 tablet (80 mg) by mouth in the morning. 30 tablet 11 024 2024 Discontinued fenofibrate micronized (Lofibra) 134 MG capsule TAKE ONE CAPSULE EVERY MORNING WITH FOOD 90 capsule 1 024 2024 Discontinued gabapentin (Neurontin) 800 MG tablet TAKE ONE TABLET THREE TIMES DAILY IN THE MORNING, AT NOON, AND AT BEDTIME 90 tablet 2 024 2024 Discontinued Active Problems Problem Noted Date Diagnosed Date Lumbar radiculopathy 05/30/2022 Raised TSH level 04/29/2020 Coronary artery disease invo lving [place] coronary artery of [place] heart without angina pectoris 11/13/2017 Hypercholesterolemia 11/13/2017 Chronic pain 09/16/2017 Shoulder pain 09/16/2017 Kidney stone 08/14/2017 Essential hypertension 07/10/2017 Type 2 diabetes mellitus 07/10/2017 Encounters Date Type Department Care Team Description 08/27/2024 2:00 PM EDT Office Visit [facility] [address] [place] [address] Ann Castellon MD Essential hypertension (Primary Dx); Type 2 diabetes mellitus with hyperglycemia, with long-term current use of insulin (CMS/HCC); Paronychia of finger of right hand; Dietary counseling; Exercise counseling; Encounter for immunization; Other constipation 08/27/2024 Travel 08/20/2024 Patient Outreach [facility] [address] [place] [address] Ann Castellon MD Pre-visit Planning (SDOH negative, Tobacco screening positive.) 08/07/2024 Refill [facility] [address] [place] [address] Ann Castellon MD Type 2 diabetes mellitus with diabetic polyneuropathy, with long-term current use of insulin ([facility]) 08/07/2024 Refill [facility] [address] [place] [address] Ann Castellon MD 08/05/2024 Refill [facility] [address] [place] [address] Ann Castellon MD Hypercholesterolemia 07/10/2024 Telephone [facility] [address] [place] [address] Ann Castellon MD recall appt (pe) 07/08/2024 Orders Only [facility] [address] [place] [address] Ann Castellon MD Essential hypertension (Primary Dx); Type 2 diabetes mellitus with hyperglycemia, with long-term current use of insulin ([facility]) 07/08/2024 Telephone [facility] [address] [place] [address] Ann Castellon MD 06/12/2024 Refill [facility] [address] [place] [address] Ann Castellon MD Type 2 diabetes mellitus with diabetic polyneuropathy ([facility]) from Last 3 Months Immunizations Name Administration Dates Next Due Hep B, adult 08/27/2024 Influenza injectable quadriv alent IIV4 with preservative 03/09/2019,03/20/2018,05/22/2017 Influenza injectable quadriv alent preservative free 03/15/2022,03/30/2021,04/01/2020 Moderna Covid-19 Vaccine 12+ 08/30/2020,08/02/19 21 Pneumococcal Conjugate PCV 20 08/27/2023 Pneumococcal Polysaccharide PPSV23 08/31/2019 Tdap 05/22/2017 Zoster, Recombinant 08/25/2021,02/07/2021 Family History Medical History Relation Name Comments Dementia Mother Breast cancer Mother's Sister Diabetes Other Hypertension Other Relation Name Status Comments Mother Mother's Sister Other Social History Tobacco Use Types Packs/Day Years Used Date Smoking Tobacco: Every Day Cigarettes 0.3 40 Passive Smoke Exposure: Current Smokeless Tobacco: Never Tobacco Cessation:Ready to Q uit: Not Asked Comments:7-8 cigarettes a day Alcohol Use Standard Drinks/Week Comments Never 0 [...] Orientation Straight 04/16/2022 10 :19 AM EDT Last Filed Vital Signs Vital Sign Reading Time Taken Comments Blood Pressure 100/62 08/27/2024 2:18 PM EDT Pulse 78 08/27/2024 2:18 PM EDT Temperature 37 ??C (98.6 ??F) 08/27/2024 2:18 PM EDT Respiratory Rate 18 08/27/2024 2:18 PM EDT Oxygen Saturation 98% 08/27/2024 2:18 PM EDT Inhaled Oxygen Concentration - - Weight 84.6 kg (186 lb 6.4 oz) 08/27/2024 2:18 P M EDT Height 169 cm (5' 6.54 ) 08/27/2024 2:18 PM EDT Body Mass Index 29.6 08/27/2024 2:18 PM EDT Plan of Treatment Health Maintenance Due Date Last Done Comments CT Colonography 1969 Colonoscopy 1969 FIT 1969 FOBT 1969 HIV Screening 1969 Sigmoidoscopy 1969 Pap Smear 1990 Cervical Cancer Screening 11/26/2022 HPV/Cotest 11/26/2022 11/26/2017 Diabetes: Urine Protein Screening 03/09/2023 03/09/2022 Diagnostic Breast Imaging 08/21/20232022, 08/13/2022, 01/26/2019 COVID-19 Vaccine ( season) 2024 08/30/2020, 08/02/2020 Influenza Vaccine (#1) 2024 , 03/30/2021, 04/01/2020, Additional history exists Diabetes: Foot Exam 08/26/2024 08/27/2023, 08/27/2023, 08/27/2023, Additional history exists Lipid Panel 09/01/2024 08/27/2024, 08/15, 03/09/2022 Hepatitis B Vaccines (2 of 3 - 19+ 3-dose series) 09/24/2024 08/27/2024 Depression Monitoring (PHQ-9) 10/27/2024 04/29/2024, 04/29/2024 Diabetes: Hemoglobin A1C 11/27/2024 025, 04/15/2024, 08/27/2023, Additional history exists Eye Exam 03/17/2025 03/17/2024, 06/2023, 03/17/2024, Additional history exists Alcohol/Substance Use Screening 04/29/2025 04/29/2024 Depression Screening 04/29/2025 04/29/2024, 04/29/20 SDOH Screening 08/20/2025 08/20/2024 Tobacco Screening 08/27/2025 08/27/2024 Colorectal Cancer Screening 10/08/2026 FIT DNA/Cologuard 10/08/2026 10/09/2023 DTaP/Tdap/Td Vaccines (2 - Td or Tdap) 05/22/2027 05/22/2017 RSV Patients and Patients Aged 60 years or older (1 - 1-dose 75+ series) 2044 Zoster Vaccines Completed 08/25/2021, 02/07/2021 Pneumococcal Vaccine: 50+ Years Completed 08/27/2023, 08/31/2019 Hepatitis C Screening Completed 09/02/2023 HIB Vaccines Aged Out No longer eligi ble based on patient's age to complete this topic HPV Vaccines Aged Out No longer eligi ble based on patient's age to complete this topic Hepatitis A Vaccines Aged Out No long er eligible based on patient's age to complete this topic IPV Vaccines Aged Out No longer eligi ble based on patient's age to complete this topic Meningococcal Vaccine Aged Out No dariana devika eligible based on patient's age to complete this topic RSV under 20 months Aged Out No longe r eligible based on patient's age to complete this topic Rotavirus Vaccines Aged Out No longer eligible based on patient's age to complete this topic Procedures Procedure Name Priority Date/Time Associated Diagnosis Comments TSH W/REFLEX TO FT4 Routine 08/27/2024 2 :52 PM EDT Essential hypertension Type 2 diabetes mellitus with hyperglycemia, with long-term current use of insulin ([facility]) COMPREHENSIVE METABOLIC PANEL Routine 08/27/2024 2:52 PM EDT Essential hypertension Type 2 diabetes mellitus with hyperglycemia, with long-term current use of insulin (CMS/HCC) LIPID PANEL, STANDARD Routine 08/27/2024 2:52 PM EDT Essential hypertension Type 2 diabetes mellitus with hyperglycemia, with long-term current use of insulin (CMS/HCC) CBC WITH AUTO DIFFERENTIAL Routine 08/27/2024 2:52 PM EDT Essential hypertension Type 2 diabetes mellitus with hyperglycemia, with long-term current use of insulin (CMS/HCC) POCT GLYCATED HEMOGLOBIN, TOTAL Routine 08/27/2024 2:42 PM EDT Type 2 diabetes mellitus with hyperglycemia, with long-term current use of insulin (CMS/HCC) POCT GLUCOSE Routine 08/27/2024 2:42 PM EDT Type 2 diabetes mellitus with hyperglycemia, with long-term current use of insulin (CMS/HCC) LAB COLOGUARD?? COLON CANCER SCREEN Routine 10/09/2023 10:30 AM EDT Screening for colon cancer HEPATITIS C ANTIBODY Routine 09/02/2023 1:10 PM EDT Type 2 diabetes mellitus with hyperglycemia, with long-term current use of insulin ([facility]) Annual physical exam BI MAMMOGRAM DIAGNOSTIC TOMOSYNTHESIS LEFT Routine 02/20/2023 2:20 PM EDT ALBUMIN, RANDOM URINE W/CREATININE Routine 03/09/2022 9:11 AM EDT ZZZ HISTORICAL HPV MRNA E6/E7 Routine 11/26/2017 3:33 PM EDT from Last 3 Months or Most Recently Relevant to Health Maintenance Results * TSH W/Reflex to FT4 (08/27/2024 2:52 PM EDT) TSH reflex Free T4 2.06 0.32 - 4.0 uIU/mL [facility] Blood Venous blood specimen / Unknown 08/27/2024 2:52 PM EDT 08/27/2024 5:37 PM EDT us Ann Castellon MD LAB BLOOD ORDERABLES Final Result [facility] [address] [place] [phone] [phone] * (ABNORMAL) CBC auto differential (08/27/2024 2:52 PM EDT) White Blood Count 11.2(H) 4.8 - 10.8 X10*3/uL [facility] Red Blood Count 3.95(L) 4.20 - 5.50 X10*6/uL [facility] Hemoglobin 11.6(L) 12.0 - 16.0 g/dl [facility] Hematocrit 36.0(L) 37.0 - 47.0 % [facility] Mean Corpuscular Volume 91.1 80.0 - 98.0 fL [facility] Mean Corpuscular Hemoglobin 29.4 27.0 - 33.0 pg [facility] Mean Corpuscular HGB Conc 32.2 31.0 - 35.0 g/dl [facility] Red Cell Distribution Width 13.8 11.0 - 16.0 % [facility] Platelet Count 374 160 - 400 X10*3/uL [facility] Mean Platelet Volume 10.1 9.4 - 12.3 fL [facility] Neutrophils Percent Auto 64.3 45 - 73 % [facility] Imm Gran Pct Auto 0.6(H) 0.0 - 0.4 % [facility] Lymphocytes Percent Auto 26.1 20 - 40 % [facility] Monocytes Percent Auto 5.8 2 - 11 % [facility] Eosinophils Percent Auto 2.1 0 - 4 % [facility] Basophils Percent Auto 1.1 0 - 2 % [facility] NRBC Pct Auto 0.0 0.0 - 0.2 /100WBC [facility] Neutrophils Absolute Auto 7.2 2.0 - 8.3 x10*3/uL [facility] Imm Gran Abs Auto 0.07(H) 0.00 - 0.03 X10*3/uL [facility] Lymphocytes Absolute Auto 2.9 1.2 - 4.9 X10*3/uL [facility] Monocytes Absolute Auto 0.7 0.1 - 1.2 X10*3/uL [facility] Eosinophils Absolute Auto 0.2 0.0 - 0.4 X10*3/uL [facility] Basophils Absolute Auto 0.1 0.0 - 0.2 X10*3/uL [facility] NRBC Abs Auto 0.000 0.0 - 0.012 X10*3/uL [facility] Blood Venous blood specimen / Unknown 08/27/2024 2:52 PM EDT 08/27/2024 5:37 PM EDT us Ann Castellon MD LAB BLOOD ORDERABLES Final Result [facility] [address] [place] [phone] * (ABNORMAL) Lipid Panel, Standard (08/27/2024 2:52 PM EDT) Triglycerides 286(H) <150 mg/dL [facility] Comment:Desirable Triglyceri de: less than 150 mg/dLBorderline High Triglyceride 150-199 mg/dLHigh Triglyceride: 200-499 mg/dLVery High Triglyceride: greater than or equal to 5OO mg/dL Cholesterol 138 <200 mg/dL [facility] Comment:Desirable Cholestero l: less than 200 mg/dLBorderline High Cholesterol: 200-239 mg/dLHigh Cholesterol: greater than 239 mg/dL LDL Cholesterol Calculated 52 <100 mg/dL [facility] Comment:Desirable LDL: less than 100 mg/dLNear Optimal/Above Optimal LDL: 110- 129 mg/dLBorderline High LDL: 130-159 mg/dLHigh LDL: 160-189 mg/dLVery High LDL: greater than or equal to 190 mg/dL HDL Cholesterol 29(L) >40 mg/dL [facility] Comment:Desirable HDL: great er than 40 mg/dL Note: This HDL assay may give artificially low results in patients with liver disease. Blood Venous blood specimen / Unknown 08/27/2024 2:52 PM EDT 08/27/2024 5:37 PM EDT us Ann Castellon MD LAB BLOOD ORDERABLES Final Result [facility] [address] [place] [phone] [phone] * (ABNORMAL) Comprehensive Metabolic Panel (08/27/2024 2:52 PM EDT) Sodium 139 135 - 145 mmol/L [facility] Potassium 4.1 3.3 - 5.1 mmol/L [facility] Chloride 106 96 - 108 mmol/L [facility] Carbon Dioxide 23 22 - 29 mmol/L [facility] Anion Gap 14 12 - 20 [facility] Urea Nitrogen (BUN) 23(H) 9 - 16 mg/dL [facility] Creatinine, Serum 1.36 0.5 - 1.4 mg/dL [facility] Estimated Glomerular Filt Rate 40 [facility] Comment:Chronic Kidney Disea se: Estimated GFR < 60 mL/min/1.15d0Balbdg Kidney Disease: Estimated GFR < 15 mL/min/1.73m2 Glucose 145(H) 60 - 115 mg/dL [facility] Calcium 9.5 8.4 - 10.2 mg/dL [facility] Bilirubin, Total 0.4 0.0 - 1.0 mg/dL [facility] Aspartate Amino Transferase 49(H) 5 - 31 U/L [facility] Alanine Aminotransferase 55(H) 0 - 31 U/L [facility] Total Protein 7.8 6.5 - 8.0 g/dL [facility] Albumin Level 4.4 3.5 - 5.0 g/dL [facility] Alkaline Phosphatase 87 39 - 117 U/L [facility] Blood Venous blood specimen / Unknown 08/27/2024 2:52 PM EDT 08/27/2024 5:37 PM EDT Ann Castellon MD LAB BLOOD ORDERABLES Final Result [facility] [address] [place] [phone] * (ABNORMAL) POCT HGB A1C (08/27/2024 2:42 PM EDT) Hemoglobin A1C 10.4(A) 4.0 - 6.0 % QC Media Lot # [id number] Lot# Expiration Date ,026 Blood 08/27/2024 2:42 PM EDT Ann Castellon MD POINT OF CARE TEST ENTER/ED IT ORDERABLES Final Result * POCT Glucose (08/27/2024 2:42 PM EDT) Glucose Blood, POC 172 60 - 200 mg/dL [employer] Media Lot # [id number] Lot# Expiration Date 87, Blood Capillary blood specimen / Unknown 08/27/2024 2:42 PM EDT Ann Castellon MD POINT OF CARE TEST ENTER/ED IT ORDERABLES Final Result * Cologuard?? colon cancer screening (10/09/2023 10:30 AM EDT) Cologuard Result Negative Negative 10/17/19 12:08 PM EDT [facility] (CLIA #:[id number]) Comment: NEGATIVE TEST RESULT. A negative Cologuard result indicates a low likelihood that a colorectal cancer (CRC) or advanced adenoma (adenomatous polyps with more advanced pre-malignant features) ??is present. The chance that a person with a negative Cologuard test has a colorectal cancer is less than 1 in 1500 (negative predictive value >99.9%) or has an ??advanced adenoma is less than ??5.3% (negative predictive value 94.7%). These data are based on a prospective cross-sectional study of 10,000 individuals at average risk for colorectal cancer who were screened with both Cologuard and colonoscopy. (Vanessa Guillen al, N Engl J Med 2014;370(14):1286- 1297) The normal value (reference range) for this assay is negative. COLOGUARD RE-SCREENING RECOMMENDATION: Periodic colorectal cancer screening is an important part of preventive healthcare for asymptomatic individuals at average risk for colorectal cancer. ??Following a negative Cologuard result, the [place] [employer] and U.S. Multi-Society Task Force screening guidelines recommend a Cologuard re-screening interval of 3 years. References: [place] [employer] Guideline for Colorectal Cancer Screening: https://www.cancer.org/cancer/yyvad-pnglov-xhghng/otlwvuucw-ahydllxsi-gqzakdp/ac s-rec ommendations.html.; Claude DK, Efren RIVERA, Spencer TorresK, Colorectal Cancer Screening: Recommendations for Physicians and Patients from the U.S. Multi-Society Task Force on Colorectal Cancer Screening , Am J Gastroenterology 2017; 112:8191-4209. TEST DESCRIPTION: Composite algorithmic analysis of stool DNA-biomarkers with hemoglobin immunoassay. ?? Quantitative values of individual biomarkers are not reportable and are not associated with individual biomarker result reference ranges. Cologuard is intended for colorectal cancer screening of adults of either sex, 45 years or older, who are at average-risk for colorectal cancer (CRC). Cologuard has been approved for use by the U.S. FDA. The performance of Cologuard was established in a cross sectional study of average-risk adults aged 50-84. Cologuard performance in patients ages 45 to 49 years was estimated by sub-group analysis of near-age groups. Colonoscopies performed for a positive result may find as the most clinically significant lesion: colorectal cancer [4.0%], advanced adenoma (including sessile serrated polyps greater than or equal to 1cm diameter) [20%] or non- advanced adenoma [31%]; or no colorectal neoplasia [45%]. These estimates are derived from a prospective cross-sectional screening study of 10,000 individuals at average risk for colorectal cancer who were screened with both Cologuard and colonoscopy. (Vanessa Guillen al, N Engl J Med 2014;370(14):0386-5156.) Cologuard may produce a false negative or false positive result (no colorectal cancer or precancerous polyp present at colonoscopy follow up). A negative Cologuard test result does not guarantee the absence of CRC or advanced adenoma (pre-cancer). The current Cologuard screening interval is every 3 years. ([place] [employer] and U.S. Multi-Society Task Force). Cologuard performance data in a 10,000 patient pivotal study using colonoscopy as the reference method can be accessed at the following location: [email or web address].[email or web address]/results. Additional description of the Cologuard test process, warnings and precautions can be found at www.cologuard.com. Stool specimen (specimen) Rectal contents / Unknown 10/09/2023 10:30 AM EDT 10/10/2023 10:47 AM EDT Ann Castellon MD LAB MOLECULAR DIAGNOSTICS O RDERABLES Final Result [facility] (CLIA #:[id number]) [place] [address], * Hepatitis C Ab (09/02/2023 1:10 PM EDT) Hepatitis C Antibody Nonreactive Nonreactive [facility] Comment:Antibodies to HCV no t detected; does not exclude early acuteHCV infection. Blood Venous blood specimen / Unknown 09/02/2023 1:10 PM EDT 09/02/2023 2:00 PM EDT Ann Castellon MD LAB BLOOD ORDERABLES Final Result [facility] [facility] [address] [place] [address] [phone] * BI Mammogram Diagnostic Tomosynthesis Left (02/20/2023 2:20 PM EDT) Anatomical Region Laterality Modality Breast Left Mammography 02/20/2023 2:20 PM EDT Narrative 02/20/2023 2:44 PM EDT ? [facility] ? [address] ?[place] [address] ? Mammography Report ? Signed ? Patient: Avelar,Patti ?MR#: [id number] ?? 57 ? : 1970 ?Acct:[id number] ? Age/Sex: 52 / F ?ADM Date: 02/20/23 ? Loc: HO.MAMMO ? Attending Dr: Ann Castellon MD ? Ordering Physician: Ann Castellon MD ?Results: 3.6MProbably Benign Finding - Short 6 M F/U ?? Suggested ? Date of Service: 02/20/23 ?Follow Up: 6 Month F/U ? Procedure(s): MM tomosynthesis diagnostic LT ?? Accession Number(s): [id number] ? cc: Ann Castellon MD ? EXAMINATION: [...] MD in OV> ?02/20/23 1440 ? DD/ 142 ? TD/TT: ? Home Child Care Provider: ? Procedure Note Jessica Dominguez - 02/21/2023 [facility] [address] [place] [address] [place] [address] Mammography Report Signed Patient: Patti AvelarMR#: [id number] 57 : 1970Acct:[id number] Age/Sex: 52 / FADM Date: 02/20/23 Loc: HO.MAMMO Attending Dr: Ann Castellon MD Ordering Physician: Ann Castellon MD Results: 3.6MProbably Benign Finding - Short 6 M F/U Suggested Date of Service: 02/20/23Follow Up: 6 Month F/U Procedure(s): MM tomosynthesis diagnostic LT Accession Number(s): [id number] cc: Ann Castellon MD EXAMINATION: MM DIAGNOSTIC [...] in OV> 02/20/23 1440 DD/ 1420 TD/TT: Home Child Care Provider: us Ann Castellon MD IMG BI PROCEDURES Edited Re sult - Final * ALBUMIN, RANDOM URINE W/CREATININE (03/09/2022 9:11 AM EDT) Pathologist [facility] Microalbumin Urine 0.7 See Note: mg/dL [facility] Comment: Reference Range: ?? Reference Range Not established Microalb/Creat Ratio 8 <30 mcg/mg creat [facility] Comment: ?? The ADA defines abnormalities in albumin excretion as follows: ?? Albuminuria Category ?Result (mcg/mg creatinine) ?? Normal to Mildly increased ?? <30 Moderately increased ? 30-299 ?? Severely increased ? > OR = 300 ?? The ADA recommends that at least two of three specimens collected within a 3-6 month period be abnormal before considering a patient to be within a diagnostic category. Creatinine, Urine 87 20 - 275 mg/dL [facility] 03/09/2022 9:11 AM EDT us Ann Castellon MD LAB URINE ORDERABLES Final Result [facility] [address] * HPV mRNA E6/E7 (11/26/2017 3:33 PM EDT) HPV mRNA E6/E7 Not Detected NOT DETECTED [facility] Comment: This test was performed using the APTIMA(R) HPV Assay ([employer] This assay detects E6/E7 viral messenger RNA (mRNA) from 14 high-risk HPV types (16,18,31,33,35,39,45,51, 52,56,58,59,66,68). For additional information please refer to: http://education.[employer]/faq/OJO448c8 (This link is being provided for informational/ educational purposes only.) The analytical performance characteristics of this assay have been determined by [employer] [employer], [place]. The modifications have not been cleared or approved by the FDA. This assay has been validated pursuant to the CLIA regulations and is used for clinical purposes. Test Performed by [facility], [address] [place], [place] Zen Stafford M.D., Ph.D., Director of Laboratories , CLIA [id number] Please note: ??Effective 02/27/2016, HPV testing will be performed using [employer]'s APTIMA test which targets mRNA. Detecting mRNA instead of DNA, as in older methods, offers significant improvements in specificity. 11/26/2017 3:33 PM EDT Zehra Hernandez CNM HISTORICAL/NON ORDERABLE LABS Final Result [facility] [address] from Last 3 Months or Most Recently Relevant to Health Maintenance Insurance [address] [place] [address] C3 Care Teams Slurry Mixer Relationship Specialty Start Date End Date Ann Castellon MD [address] [place] [phone] PCP - General Internal Medicine 05/29/17
--- OUTSIDE RECORDS SUMMARY | 2024-08-27 18:37 | XMS_ITS | Encounter Summary ---
Author Organization [employer] Address [address] [facility] 7 [place] [address] Care Team Providers Care Agricultural Research Engineer Name Role Phone Ann Castellon MD Primary Care Provider [phone] Reason for Visit * Reason Comments Pre-visit Planning SDOH negative, Tobac co screening positive. Encounter Details Date Type Department Care Team ([facility] st Contact Info) Description 08/20/2024 Patient Outreach [facility] [address] [place], [place] [phone] Ann Castellon MD [address] [place] [address] Pre-visit Planning (SDOH negative, Tobacco screening positive.) Social History Tobacco Use Types Packs/Day Years [...] AM EDT documented as of this encounter Progress Notes * Franchesca Naylor - 08/20/2024 11:27 AM EST CC Franchesca Meeks placed successful outbound call to patient for pre-visit planning. Patient name and confirmed. Patient confirms appt date and time, and has transportation arrangements. Biggest concern for appointment at this time is patient is losing her toe nails. Appropriate screenings completed in anticipation of appointment. documented in this encounter Plan of Treatment Not on file documented as of this encounter Visit Diagnoses Not on filedocumented in this encounter Additional Health Concerns Assessment Noted Time PHQ-9 Depression Total Score: 9 04/29/20 24 10:50 AM EST documented as of this encounter Care Teams Agricultural Research Engineer Relationship Specialty Start Date End Date Ann Castellon MD [address] [place] [phone] PCP - General Internal Medicine 05/29/17 documented as of this encounter
--- OUTSIDE RECORDS SUMMARY | 2024-08-27 18:37 | XMS_ITS | Encounter Summary ---
Author Organization [employer] [facility] Address [address] [place] [address] [place] [address] Care Team Providers Care Water Main Pipe Layer Name Role Phone Kinga Castellon MD Primary Care Provider [phone] Reason for Referral * Consultation (Routine) - Pending Review Specialty Diagnoses / Procedures Referred By Estephanie correa Referred To Contact Podiatry Diagnoses Type 2 diabetes mellitus with hyperglycemia, with long-term current use of insulin (CMS/HCC) Paronychia of finger of right hand Kinga Castellon MD [address] [place] [address] Phone: tel: fax: Referral ID Status Reason Start Date Expiration Date Visits Requested Visits Authorized [id number] Pending Review Specialty Services Required 08/27/2024 08/27/2025 1 1 * Consultation (Routine) - Authorized Specialty Diagnoses / Procedures Referred By Estephanie correa Referred To Contact Pharmacy Diagnoses Type 2 diabetes mellitus with hyperglycemia, with long-term current use of insulin (CMS/HCC) Kinga Castellon MD [address] [place] [address] Phone: tel: fax: Referral ID Status Reason Start Date Expiration Date Visits Requested Visits Authorized [id number] Authorized Consult and Treat 08/27/2024 08/27/2025 6 6 Encounter Details Date Type Department Care Team (Late st Contact Info) Description 08/27/2024 2:00 PM EDT Office Visit [facility] [address] [place] [address] Kinga Castellon MD [address] [place] [address] Essential hypertension (Primary Dx); Type 2 diabetes mellitus with hyperglycemia, with long-term current use of insulin (CMS/HCC); Paronychia of finger of right hand; Dietary counseling; Exercise counseling; Encounter for immunization; Other constipation Social History Tobacco Use Types Packs/Day Years [...] AM EDT documented as of this encounter Last Filed Vital Signs Vital Sign Reading [...] Mass Index 29.6 08/27/2024 2:18 PM EDT documented in this encounter Progress Notes * Kinga Castellon MD - 08/27/2024 2:00 PM EDT Subjective Patient ID: Patti Avelar is a 54 y.o. female who presents for No chief complaint on file.. HPI Patient with history of diabetes, hypertension here for her annual physical. Patient checks her fingerstick at home and consistently. She does not report any symptoms or recorded hypoglycemia since her last office visit. She is mostly concerned about the swelling with bruising of the right CATHRYN ungual area of the big toe and the second toe Patient Active Problem List Diagnosis Chronic pain Coronary artery disease involving [place] coronary artery of [place] heart without angina pectoris Essential hypertension Hypercholesterolemia Kidney stone Lumbar radiculopathy Raised TSH level Shoulder pain Type 2 diabetes mellitus (CMS/HCC) No Known Allergies Review of Systems Constitutional: Negative for activity change, appetite change and chills. Eyes: Negative for pain, redness and itching. Respiratory: Negative for cough, choking and shortness of breath. Cardiovascular: Negative for leg swelling. Skin: Right big toe swelling Objective BP 100/62 (BP Location: Right arm, Patient Position: Sitting, BP Cuff Size: Adult) Pulse 78 Temp 98.6 ??F (37 ??C) (Oral) Resp 18 Ht 5' 6.54 (1.69 m) Wt 186 lb 6.4 oz (84.6 kg) SpO2 98% BMI 29.60 kg/m?? Physical Exam Constitutional: General: She is not in acute distress. Appearance: Normal appearance. She is not ill-appearing, toxic-appearing or diaphoretic. Cardiovascular: Rate and Rhythm: Normal rate. Pulmonary: Effort: Pulmonary effort is normal. Abdominal: Palpations: Abdomen is soft. Skin: General: Skin is warm. Comments: Very ongoing swelling and erythema of the right big toe and second toe. No tenderness to palpation. Neurological: General: No focal deficit present. Mental Status: She is alert. Psychiatric: Mood and Affect: Mood normal. Assessment/Plan Diagnoses and all orders for this visit: Essential hypertension Comments: Blood pressure is at goal No change will be made to the current management. DASH diet. Orders: - CBC auto differential; Future - Lipid Panel, Standard; Future - Hepatitis C Antibody with Reflex to HCV, RNA, Quantitative, Real-Time PCR; Future - Comprehensive Metabolic Panel; Future - TSH W/Reflex to FT4; Future Type 2 diabetes mellitus with hyperglycemia, with long-term current use of insulin (CMS/HCC) Comments: Uncontrolled. Patient will benefit from an evaluation by our clinical pharmacist Orders: - POCT Glucose - POCT HGB A1C - Referral to Pharmacy CDTM - Referral to Podiatry; Future - CBC auto differential; Future - Lipid Panel, Standard; Future - Hepatitis C Antibody with Reflex to HCV, RNA, Quantitative, Real-Time PCR; Future - Comprehensive Metabolic Panel; Future - TSH W/Reflex to FT4; Future Paronychia of finger of right hand - cephalexin (Keflex) 500 MG capsule; Take 1 capsule (500 mg) by mouth 3 times daily for 10 days. - Referral to Podiatry; Future - fluconazole (Diflucan) 150 MG tablet; 1 tablet once for 2 weeks Dietary counseling Exercise counseling Dietary Recommendations: Fruits, vegetables, whole grains, protein foods, and fat-free or low-fat dairy products are healthychoices. Eat different types of protein foods in your diet. This can include seafood, lean meats, poultry, beans, peas, lentils, nuts, seeds, soy products, and eggs. Limit foods and beverages higher in added sugars, saturated fat, and sodium. Exercise Recommendations: At least 150 minutes of moderate-intensity physical activity per week, or an equivalent combinationof moderate- and vigorous-intensity activity Encounter for immunization - HEPATITIS B VACCINE ADULT 20 yrs + documented in this encounter Miscellaneous Notes * Addendum Note - Kinga Castellon MD - 08/27/2024 2:00 PM EDTAddended by: KINGA CASTELLON on: 08/27/2024 04:47 PM Modules accepted: Orders documented in this encounter Plan of Treatment Scheduled Orders Name Type Priority Associated Diagnoses Orde r Schedule Hepatitis C Antibody with Reflex to HCV, RNA, Quantitative, Real-Time PCR Lab Routine Essential hypertension Type 2 diabetes mellitus with hyperglycemia, with long-term current use of insulin (CMS/HCC) Expected: 08/27/2024, Expires: 08/27/2025 Scheduled Referrals Name Type Priority Associated Diagnoses Orde r Schedule Referral to Pharmacy CDTM Outpatient Referral Routine Type 2 diabetes mellitus with hyperglycemia, with long-term current use of insulin (CMS/HCC) Ordered: 08/27/2024 Referral to Podiatry Outpatient Referral Routine Type 2 diabetes mellitus with hyperglycemia, with long-term current use of insulin (CMS/HCC) Paronychia of finger of right hand Expected: 08/27/2024 (Approximate), Expires: 08/27/2025 documented as of this encounter Procedures Procedure [...] with long-term current use of insulin (CMS/HCC) COMPREHENSIVE METABOLIC PANEL Routine 08/27/2024 2:52 PM EDT Essential hypertension Type 2 diabetes mellitus with hyperglycemia, with long-term current use of insulin ([facility]) POCT GLYCATED HEMOGLOBIN, TOTAL Routine 08/27/2024 2:42 PM EDT Type 2 diabetes mellitus with hyperglycemia, with long-term current use of insulin ([facility]) POCT GLUCOSE Routine 08/27/2024 2:42 PM EDT Type 2 diabetes mellitus with hyperglycemia, with long-term current use of insulin ([facility]) documented in this encounter Results * TSH W/Reflex to FT4 (08/27/2024 2:52 PM EDT) TSH reflex Free T4 2.06 0.32 - 4.0 uIU/mL [facility] Blood Venous blood specimen / Unknown 08/27/2024 2:52 PM EDT 08/27/2024 5:37 PM EDT us Kinga Castellon MD LAB BLOOD ORDERABLES Final Result [facility] [address] [place] [phone] * (ABNORMAL) Comprehensive Metabolic Panel (08/27/2024 2:52 PM EDT) Sodium 139 135 - 145 mmol/L [facility] Potassium 4.1 3.3 - 5.1 mmol/L [facility] Chloride 106 96 - 108 mmol/L [facility] Carbon Dioxide 23 22 - 29 mmol/L [facility] Anion Gap 14 12 - 20 [facility] Urea Nitrogen (BUN) 23(H) 9 - 16 mg/dL [facility] Creatinine, Serum 1.36 0.5 - 1.4 mg/dL [facility] Estimated Glomerular Filt Rate 40 [facility] Comment:Chronic Kidney Disea se: Estimated GFR < 60 mL/min/[id number] Kidney Disease: Estimated GFR < 15 mL/min/1.73m2 Glucose 145(H) 60 - 115 mg/dL [facility] Calcium 9.5 8.4 - 10.2 mg/dL [facility] Bilirubin, Total 0.4 0.0 - 1.0 mg/dL [facility] Aspartate Amino Transferase 49(H) 5 - 31 U/L [facility] Alanine Aminotransferase 55(H) 0 - 31 U/L [facility] Total Protein 7.8 6.5 - 8.0 g/dL [facility] Albumin Level 4.4 3.5 - 5.0 g/dL [facility] Alkaline Phosphatase 87 39 - 117 U/L [facility] Blood Venous blood specimen / Unknown 08/27/2024 2:52 PM EDT 08/27/2024 5:37 PM EDT us Kinga Castellon MD LAB BLOOD ORDERABLES Final Result [facility] [address] [place] [phone] * (ABNORMAL) Lipid Panel, Standard (08/27/2024 2:52 PM EDT) Triglycerides 286(H) <150 mg/dL [facility] Comment:Desirable Triglyceri de: less than 150 mg/dLBorderline High Triglyceride 150-199 mg/dLHigh Triglyceride: 200-499 mg/dLVery High Triglyceride: greater than or equal to 5OO mg/dL Cholesterol 138 <200 mg/dL [facility] Comment:Desirable Cholestero l: less than 200 mg/dLBorderline High Cholesterol: 200-239 mg/dLHigh Cholesterol: greater than 239 mg/dL LDL Cholesterol Calculated 52 <100 mg/dL [facility] Comment:Desirable LDL: less than 100 mg/dLNear Optimal/Above Optimal LDL: 110- 129 mg/dLBorderline High LDL: 130-159 mg/dLHigh LDL: 160-189 mg/dLVery High LDL: greater than or equal to 190 mg/dL HDL Cholesterol 29(L) >40 mg/dL [facility] Comment:Desirable HDL: great er than 40 mg/dL Note: This HDL assay may give artificially low results in patients with liver disease. Blood Venous blood specimen / Unknown 08/27/2024 2:52 PM EDT 08/27/2024 5:37 PM EDT Kinga Castellon MD LAB BLOOD ORDERABLES Final Result [facility] [address] [place] [address] [phone] * (ABNORMAL) CBC auto differential (08/27/2024 2:52 PM EDT) White Blood Count 11.2(H) 4.8 - 10.8 X10*3/uL [facility] Red Blood Count 3.95(L) 4.20 - 5.50 X10*6/uL [facility] Hemoglobin 11.6(L) 12.0 - 16.0 g/dl [facility] Hematocrit 36.0(L) 37.0 - 47.0 % [facility] Mean Corpuscular Volume 91.1 80.0 - 98.0 fL [facility] Mean Corpuscular Hemoglobin 29.4 27.0 - 33.0 pg [facility] Mean Corpuscular HGB Conc 32.2 31.0 - 35.0 g/dl [facility] Red Cell Distribution Width 13.8 11.0 - 16.0 % [facility] Platelet Count 374 160 - 400 X10*3/uL [facility] Mean Platelet Volume 10.1 9.4 - 12.3 fL [facility] Neutrophils Percent Auto 64.3 45 - 73 % [facility] Imm Gran Pct Auto 0.6(H) 0.0 - 0.4 % [facility] Lymphocytes Percent Auto 26.1 20 - 40 % [facility] Monocytes Percent Auto 5.8 2 - 11 % [facility] Eosinophils Percent Auto 2.1 0 - 4 % [facility] Basophils Percent Auto 1.1 0 - 2 % [facility] NRBC Pct Auto 0.0 0.0 - 0.2 /100WBC [facility] Neutrophils Absolute Auto 7.2 2.0 - 8.3 x10*3/uL [facility] Imm Gran Abs Auto 0.07(H) 0.00 - 0.03 X10*3/uL [facility] Lymphocytes Absolute Auto 2.9 1.2 - 4.9 X10*3/uL [facility] Monocytes Absolute Auto 0.7 0.1 - 1.2 X10*3/uL [facility] Eosinophils Absolute Auto 0.2 0.0 - 0.4 X10*3/uL [facility] Basophils Absolute Auto 0.1 0.0 - 0.2 X10*3/uL [facility] NRBC Abs Auto 0.000 0.0 - 0.012 X10*3/uL [facility] Blood Venous blood specimen / Unknown 08/27/2024 2:52 PM EDT 08/27/2024 5:37 PM EDT Kinga Castellon MD LAB BLOOD ORDERABLES Final Result Performing Organization Address City/State/[facility] Co de Phone Number [facility] [address] [place] [phone] * (ABNORMAL) POCT HGB A1C (08/27/2024 2:42 PM EDT) Pathologist [facility] Hemoglobin A1C 10.4(A) 4.0 - 6.0 % QC Media Lot # [id number] Lot# Expiration Date [id number] Blood 08/27/2024 2:42 PM EDT Kinga Castellon MD POINT OF CARE TEST ENTER/ED IT ORDERABLES Final Result * POCT Glucose (08/27/2024 2:42 PM EDT) Glucose Blood, POC 172 60 - 200 mg/dL [employer] Media Lot # [id number] Lot# Expiration Date Blood Capillary blood specimen / Unknown 08/27/2024 2:42 PM EDT Kinga Castellon MD POINT OF CARE TEST ENTER/ED IT ORDERABLES Final Result documented in this encounter Visit Diagnoses Diagnosis Essential hypertension- Primary Unspecified essential hypertension Type 2 diabetes mellitus with hyperglycemia, with long-term current use of insulin ([facility]) Paronychia of finger of right hand Dietary counseling Dietary surveillance and counseling Exercise counseling Encounter for immunization Other constipation documented in this encounter Additional Health Concerns Assessment Noted Time PHQ-9 Depression Total Score: 9 04/29/20 24 10:50 AM EST documented as of this encounter Care Teams Water Main Pipe Layer Relationship Specialty Start Date End Date Kinga Castellon MD [address] [place] [phone] PCP - General Internal Medicine 05/29/17 documented as of this encounter
--- OUTSIDE RECORDS SUMMARY | 2024-08-27 18:37 | XMS_ITS | Clinical Summary ---
Author Organization [facility] Address [address] [place] [address] Care Team Providers Care Associate Director Of Sales Name Role Phone Unavailable Primary Care Provider Unavailabl e Social History Tobacco Use Types Packs/Day Years Used Date Smoking Tobacco: Never Assessed Comments Unknown Sex and Gender Information Value Date Recorded Sex Assigned at Not on file Legal Sex Female 2:28 AM EST Gender Identity Not on file Sexual Orientation Not on file Plan of Treatment Health Maintenance Due Date Last Done Comments Breast Cancer Screening 1970 DTaP,Tdap,and Td Vaccines (1 - Tdap) 1988 Hepatitis B Vaccines (1 of 3 - 19+ 3-dose series) 1988 Cervical Cancer Screening: P ap Smear 1990 Pneumococcal Vaccine: 50+ Ye ars (1 of 1 - PCV) 08/20/2019 Zoster Vaccines (1 of 2) 08/20/2019 COVID-19 Vaccine ( - 2023-2 5 season) 2024 Influenza Vaccine (#1) 2024 HIB Vaccines Aged Out No longer eligi [...] on patient's age to complete this topic MMR Vaccines Aged Out No longer eligi ble based on patient's age to complete this topic Meningococcal ACWY Vaccine Aged Out N o longer eligible based on patient's age to complete this topic Meningococcal B Vacine Aged Out No lo nger eligible based on patient's age to complete this topic Pneumococcal Vaccine: Pediat rics (0 to 5 Years) and At-Risk Patients (6 to 64 Years) Aged Out No longer eligible b ased on patient's age to complete this topic RSV Immunization Patients Un sally 20 months Aged Out No longer eligible b ased on patient's age to complete this topic Varicella Vaccines Aged Out No longer eligible based on patient's age to complete this topic
--- OUTSIDE RECORDS SUMMARY | 2024-08-27 18:37 | XMS_ITS | Encounter Summary ---
Author Organization [employer] Address [address] [facility] 7t [place] [address] Care Team Providers Care Business Systems Analyst Name Role Phone Ann Castellon MD Primary Care Provider [phone] Encounter Details Date Type Department Care Team (Late st Contact Info) Description 11/28/2022 Orders Only [facility] [address] [place], [place] [phone] Ann Castellon MD [address] [place] [address] Facet arthropathy of spine (Primary Dx) Social History Tobacco Use Types [...] Orientation Straight 04/16/2022 10 :19 AM EDT COVID-19 Exposure Response Date Recorded In the last 10 days, have yo u been in contact with someone who was confirmed or suspected to have Coronavirus/COVID-19? No / Unsure 11/13/2022 3:04 PM EDT documented as of this encounter Plan of Treatment Not on file documented as of this encounter Visit Diagnoses Diagnosis Facet arthropathy of spine- Primary Spondylosis of unspecified site without mention of myelopathy documented in this encounter Additional Health Concerns Assessment Noted Time PHQ-9 Depression Total Score: 2 07/03/19 23 10:01 AM EST documented as of this encounter Care Teams Business Systems Analyst Relationship Specialty Start Date End Date Ann Castellon MD [address] [place] [phone] PCP - General Internal Medicine 05/29/17 documented as of this encounter
--- OUTSIDE RECORDS SUMMARY | 2024-08-27 18:37 | XMS_ITS | Encounter Summary ---
Author Organization [employer] Address [address] [address] Care Team Providers Care Customer Service Trainer Name Role Phone Ann Castellon MD Primary Care Provider [phone] Reason for Referral * Consultation (Routine) - Closed Specialty Diagnoses / Procedures Referred By Contac t Referred To Contact Pain Medicine Diagnoses Lumbar radiculopathy Ann Castellon MD [address] [place] [address] Phone: tel: fax: [facility] Pain Management [address] [address] Phone: tel: fax: Referral ID Status Reason Start Date Expiration Date V isits Requested Visits Authorized [id number] Closed Specialty Services Required 12/09/2023 12/08/2024 1 1 Encounter Details Date Type Department Care Team ([facility] st Contact Info) Description 12/09/2023 Orders Only [facility] CHC MED & PEDS [address] [place], [place] [phone] Ann Castellon MD [address] [place] [address] Lumbar radiculopathy (Primary Dx) Social History Tobacco Use Types Packs/Day Years Used Date Smoking Tobacco: Former Cigarettes 0.3 40 Passive Smoke Exposure: Current Smokeless Tobacco: Never Depression Answer Date Recorded Patient Health Questionnaire-9 Score 2 07/03/2022 Housing Stability Answer Date Recorded What is [...] as of this encounter Plan of Treatment Scheduled Referrals Name Type Priority Associated Diagnoses Orde r Schedule Referral to Pain Medicine Outpatient Referral Routine Lumbar radiculopathy Expected: 12/09/2023 (Approximate), Expires: 12/08/2024 documented as of this encounter Visit Diagnoses Diagnosis Lumbar radiculopathy- Primary Thoracic or lumbosacral neuritis or radiculitis, unspecified documented in this encounter Additional Health Concerns Assessment Noted Time PHQ-9 Depression Total Score: 2 07/03/19 23 10:01 AM EST documented as of this encounter Care Teams Customer Service Trainer Relationship Specialty Start Date End Date Ann Castellon MD [address] [place] [address] PCP - General Internal Medicine 05/29/17 documented as of this encounter
--- OUTSIDE RECORDS SUMMARY | 2024-08-27 18:37 | XMS_ITS | Encounter Summary ---
Author Organization [employer] Address [address] [place] [address] 7 [place] [address] Care Team Providers Care Ground Crewman Name Role Phone Ann Castellon MD Primary Care Provider [phone] Reason for Referral * Consultation (Routine) - Closed Specialty Diagnoses / Procedures Referred By Contac t Referred To Contact Family Medicine Diagnoses Type 2 diabetes mellitus with hyperglycemia, with long-term current use of insulin (CMS/HCC) Ann Castellon MD [address] [place] [address] Phone: tel: fax: Referral ID Status Reason Start Date Expiration Date V isits Requested Visits Authorized [id number] Closed Co-Managemen t of Problem 04/15/2024 04/15/2025 1 1 Encounter Details Date Type Department Care Team (Late st Contact Info) Description 04/13/2024 Orders Only [facility] CHC MED & PEDS [address] [place] [address] Ann Castellon MD [address] [place] [address] Type 2 diabetes mellitus with hyperglycemia, with long-term current use of insulin (CMS/HCC) (Primary Dx) Social History Tobacco Use Types Packs/Day Years Used Date Smoking Tobacco: Former Cigarettes 0.3 40 Passive Smoke Exposure: Current Smokeless Tobacco: Never Depression Answer Date Recorded Patient Health Questionnaire-9 Score 2 07/03/2022 Housing Stability Answer Date Recorded What is your housing situation today? I have joann sing 08/16/[address] you li [...] Encounter Note - Ann Castellon MD - 04/13/2024 10:41 PM EDT Please fax this result to pain management and inform Ms Patti Avelar that she will be referred Vignesh to help her manage her diabetes in order to get help from the pain clinic. documented in this encounter Plan of Treatment Scheduled Referrals Name Type Priority Associated Diagnoses Orde r Schedule Referral to Diabetic practical nurse Outpatient Referral Routine Type 2 diabetes mellitus with hyperglycemia, with long-term current use of insulin ([facility]) Expected: 04/15/2024 (Approximate), Expires: 04/15/2025 documented as of this encounter Procedures Procedure Name Priority Date/Time Associated Diagnosis Comments HEMOGLOBIN A1C Routine 04/15/2024 9:40 AM EDT Type 2 diabetes mellitus with hyperglycemia, with long-term current use of insulin ([facility]) documented in this encounter Results * (ABNORMAL) Hemoglobin A1c (04/15/2024 9:40 AM EDT) Hemoglobin A1c 9.5(H) <6.0 % [facility] Comment:Hemoglobin A1C Refer ence Range Adults: 4.8 - 6.0 % Non diabetic: < 6.0 % Goal: < 7.0 %Additional Action Suggested: > 8.0 %Note: Hemoglobin A1c results are invalid for patients with abnormal amounts of HbF. Blood transfusions may impact the HbA1c concentration in the patient sample. Estimated Average Glucose 226 mg/dL [facility] Comment:eAG = Estimated ave rage glucose which is %A1C expressed asaverage glucose, using the formula of the O7T-HbnecysKjtnlna Glucose study (ADAG), Diabetes Care, Vol.31,#8,Jan. 2007 Blood Venous blood specimen / Unknown 04/15/2024 9:40 AM EDT 04/15/2024 11:23 AM EDT Ann Castellon MD LAB BLOOD ORDERABLES Final Result [facility] [address] [place] [address] [phone] documented in this encounter Visit Diagnoses Diagnosis Type 2 diabetes mellitus with hyperglycemia, with long-term current use of insulin ([facility])- Primary documented in this encounter Additional Health Concerns Assessment Noted Time PHQ-9 Depression Total Score: 2 07/03/19 23 10:01 AM EST documented as of this encounter Care Teams Ground Crewman Relationship Specialty Start Date End Date Ann Castellon MD [address] [place] [address] PCP - General Internal Medicine 05/29/17 documented as of this encounter
--- OUTSIDE RECORDS SUMMARY | 2024-08-27 18:37 | XMS_ITS | Encounter Summary ---
Author Organization [employer] Address 75 [facility] 7 [place] [address] Care Team Providers Care Research Agricultural Engineer Name Role Phone Ann Castellon MD Primary Care Provider [phone] Encounter Details Date Type Department Care Team (Late st Contact Info) Description 05/21/2023 Orders Only [facility] CHC MED & PEDS [address] [place], [place] [phone] Ann Castellon MD [address] [place] [address] Lumbar radiculopathy (Primary Dx) Social History Tobacco [...] documented as of this encounter Care Teams Research Agricultural Engineer Relationship Specialty Start Date End Date Ann Castellon MD [address] [place] [address] PCP - General Internal Medicine 05/29/17 documented as of this encounter
--- OUTSIDE RECORDS SUMMARY | 2024-08-27 18:37 | XMS_ITS | Encounter Summary ---
Author Organization [email or web address] Address 75 [facility] 7t [place] [address] Care Team Providers Care Air Brake Rigger Name Role Phone Ann Castellon MD Primary Care Provider [phone] Encounter Details Date Type Department Care Team (Latest Contact Info) Description 09/16/2023 Orders Only [facility] CHC MED & PEDS [address] [place], [place] [phone] Ann Castellon MD [address] [place], [place] [phone] Hypercholesterolemia (Primary Dx) Social History Tobacco Use Types Packs/Day Years Used Date Smoking Tobacco: Former Cigarettes 0.3 40 Passive Smoke Exposure: Current Smokeless Tobacco: Never Depression Answer Date Recorded Patient Health Questionnaire-9 Score 2 07/03/2022 Housing Stability Answer Date Recorded What is your housing situation today? I have joannrenée hernandez 08/16/[address] you [...] as of this encounter Visit Diagnoses Diagnosis Hypercholesterolemia- Primary Pure hypercholesterolemia documented in this encounter Additional Health Concerns Assessment Noted Time PHQ-9 Depression Total Score: 2 07/03/19 23 10:01 AM EST documented as of this encounter Care Teams Air Brake Rigger Relationship Specialty Start Date End Date Ann Castellon MD [address] [place] [address] PCP - General Internal Medicine 05/29/17 documented as of this encounter
[2024-08-28 04:15] LABS: ~HepC Num1 0.08 S/CO (0.00-0.79); ~Hepatitis C Antibody Nonreactive (Nonreactive)
== END 2024-08-27 14:52 | disposition home or self-care (01) ==
LOC: HO.CHCLDS 14:51
PROVIDERS: Visit Provider Internal Medicine
DX: I10 Essential (primary) hypertension (principal); E11.65 Type 2 diabetes mellitus with hyperglycemia; Z79.4 Long term (current) use of insulin
CPT/HCPCS: 36415; 80053; 80061; 84443; 85025; 86803

== ENCOUNTER 2024-10-22 09:55 | Outpatient (REF) | payer MEDICAID, SELFPAY ==
--- NOTE | ~2024-10-22 | US_ITS ---
EXAMINATION: US ABDOMEN HISTORY: Transaminitis TECHNIQUE: Real-time grayscale ultrasound imaging of the abdomen was performed and images were reviewed. COMPARISON: Correlation is made with a renal ultrasound dated 08/12/2017. FINDINGS: Liver: The right lobe of the liver measures 14.6 cm in size. The left lobe of the liver measures 8.5 cm in size. The liver demonstrates increased echotexture, consistent with steatosis. No focal mass or intrahepatic biliary ductal dilatation is identified. There is normal hepatopedal flow in the portal vein. Gallbladder and biliary tree: The gallbladder is not identified, and may be surgically absent. The common bile duct is normal in caliber measuring 3 mm. Kidneys: The right kidney measures 10.5 cm in length. The left kidney measures 11.5 cm in length. The kidneys are unremarkable, without evidence of masses, hydronephrosis, or calculi. Pancreas: The pancreatic head, neck, and body are unremarkable. The pancreatic tail is obscured by bowel gas. Spleen: The spleen is normal in size and contour, measuring 9.6 cm in length. Abdominal aorta and inferior vena cava: The visualized portions of the abdominal aorta and inferior vena cava are normal in caliber. There is no free fluid in the abdomen. US/US abdomen complete IMPRESSION: Hepatic steatosis. The gallbladder is not identified and may be surgically absent. Correlation with the patient's surgical history is recommended. Electronically signed by: Clarke Patricia MD 10/22/2024 10:54 AM EDT
--- OUTSIDE RECORDS SUMMARY | 2024-10-22 10:49 | XMS_ITS | Encounter Summary ---
Author Organization [employer] Address [address] [place] [address] 7 [place] [address] Care Team Providers Care Children'S Attendant Name Role Phone Ann Castellon MD Primary Care Provider [phone]- [phone] Reason for Referral * Consultation (Routine) - Closed Specialty Diagnoses / Procedures Referred By Contac t Referred To Contact Family Medicine Diagnoses Type 2 diabetes mellitus with hyperglycemia, with long-term current use of insulin (CMS/HCC) Ann Castellon MD [address] [place] [address] Phone: tel: fax: Referral ID Status Reason Start Date Expiration Date V isits Requested Visits Authorized [id number] Closed Co-Managemen t of Problem 04/15/2024 04/15/2025 1 1 Encounter Details Date Type Department Care Team ([facility] st Contact Info) Description 04/13/2024 Orders Only [facility] CHC MED & PEDS [address] [place] [address] Ann Castellon MD [address] [place] [address] Type 2 diabetes mellitus with hyperglycemia, with [...] documented in this encounter Plan of Treatment Upcoming Encounters Date Type Department Care Team (Late st Contact Info) Description 10/29/2024 1:30 PM EDT Medication Management [facility] MED & PEDS [address] [place], [place] [phone] Brissa Calixto, PharmD [address] [place] [address] 11/30/2024 1:45 PM EDT Office Visit [facility] CHC MED & PEDS [address] [place] [address] Ann Castellon MD [address] [place] [address] 03/18/2025 2:30 PM EDT Office Visit [facility] OPTOMETRY [address] [place] [address] Fidencio, Mirtha, OD [address] [place] [address] Scheduled Referrals Name Type Priority Associated Diagnoses Orde r Schedule Referral to Diabetic meat processing center manager Outpatient Referral Routine Type 2 diabetes mellitus with hyperglycemia, with long-term current use of insulin ([facility]) Expected: 04/15/2024 (Approximate), Expires: 04/15/2025 documented as of this encounter Procedures Procedure Name Priority Date/Time Associated Diagnosis Comments HEMOGLOBIN A1C Routine 04/15/2024 9:40 AM EDT Type 2 diabetes mellitus with hyperglycemia, with long-term current use of insulin ([facility]) documented in this encounter Results * (ABNORMAL) Hemoglobin A1c (04/15/2024 9:40 AM EDT) Hemoglobin A1c 9.5(H) <6.0 % [facility] Comment:Hemoglobin A1C Refer ence Range Adults: 4.8 - 6.0 % Non diabetic: < 6.0 % Goal: < 7.0 %Additional Action Suggested: > 8.0 %Note: Hemoglobin A1c results are invalid for patients with abnormal amounts of HbF. Blood transfusions may impact the HbA1c concentration in the patient sample. Estimated Average Glucose 226 mg/dL [facility] Comment:eAG = Estimated ave rage glucose which is %A1C expressed asaverage glucose, using the formula of the H8S-BkfbgncYsahvlh Glucose study (ADAG), Diabetes Care, Vol.31,#8,Jan. 2007 Blood Venous blood specimen / Unknown 04/15/2024 9:40 AM EDT 04/15/2024 11:23 AM EDT Ann Castellon MD LAB BLOOD ORDERABLES Final Result [facility] [address] [place] [address] [phone] documented in this encounter Visit Diagnoses Diagnosis Type 2 diabetes mellitus with hyperglycemia, with long-term current use of insulin ([facility])- Primary documented in this encounter Additional Health Concerns Assessment Noted Time PHQ-9 Depression Total Score: 2 07/03/19 23 10:01 AM EST documented as of this encounter Care Teams Children'S Attendant Relationship Specialty Start Date End Date Ann Castellon MD [address] [place] [address] PCP - General Internal Medicine 05/29/17 documented as of this encounter
--- OUTSIDE RECORDS SUMMARY | 2024-10-22 10:50 | XMS_ITS | Encounter Summary ---
Author Organization [employer] Address [address] [place] [address] 7t [place] [address] Care Team Providers Care Salesperson Furs Name Role Phone Ann Castellon MD Primary Care Provider [phone] Encounter Details Date Type Department Care Team (Late st Contact Info) Description 05/21/2023 Orders Only [facility] MED & PEDS [address] [place] [address] Ann Castellon MD [address] [place] [address] Lumbar radiculopathy (Primary Dx) Social History Tobacco [...] as of this encounter Plan of Treatment Upcoming Encounters Date Type Department Care Team (Late st Contact Info) Description 10/29/2024 1:30 PM EDT Medication Management [facility] CHC MED & PEDS [address] [place] [address] Brissa Calixto, PharmD [address] [place], [place] [phone] 11/30/2024 1:45 PM EDT Office Visit [facility] CHC MED & PEDS [address] [place] [address] Ann Castellon MD [address] [place] [address] 03/18/2025 2:30 PM EDT Office Visit [facility] OPTOMETRY [address] [place] [address] Fidencio, Mirtha, OD [address] [place] [address] documented as of this encounter Visit Diagnoses Diagnosis Lumbar radiculopathy- Primary Thoracic or lumbosacral neuritis or radiculitis, unspecified documented in this encounter Additional Health Concerns Assessment Noted Time PHQ-9 Depression Total Score: 2 07/03/19 23 10:01 AM EST documented as of this encounter Care Teams Salesperson Furs Relationship Specialty Start Date End Date Ann Castellon MD [address] [place] [address] PCP - General Internal Medicine 05/29/17 documented as of this encounter
--- OUTSIDE RECORDS SUMMARY | 2024-10-22 10:50 | XMS_ITS | Encounter Summary ---
Author Organization [employer] Address [address] [address] Care Team Providers Care Health Science Specialist Name Role Phone Ann Castellon MD Primary Care Provider [phone]- [phone] Reason for Referral * Consultation (Routine) - Closed Specialty Diagnoses / Procedures Referred By Contac t Referred To Contact Pain Medicine Diagnoses Lumbar radiculopathy Ann Castellon MD [address] [place] [address] Phone: tel: fax: [facility] Pain Management [address] [address] Phone: tel: fax: Referral ID Status Reason Start Date Expiration Date V isits Requested Visits Authorized [id number] Closed Specialty Services Required 12/09/2023 12/08/2024 1 1 Encounter Details Date Type Department Care Team (Late st Contact Info) Description 12/09/2023 Orders Only [facility] CHC MED & PEDS [address] [place], [place] [phone] Ann Castellon MD [address] [place] [address] Lumbar radiculopathy (Primary Dx) Social History Tobacco [...] Upcoming Encounters Date Type Department Care Team ([facility] Contact Info) Description 10/29/2024 1:30 PM EDT Medication Management [facility] MED & PEDS [address] [place] [address] Brissa Calixto, PharmD [address] [place] [address] 11/30/2024 1:45 PM EDT Office Visit [facility] MED & PEDS [address] [place] [address] Ann Castellon MD [address] [place] [address] 03/18/2025 2:30 PM EDT Office Visit [facility] OPT[facility]ET[facility] [address] [place] [address] Mirtha Nicolas, OD [address] [place] [address] Scheduled Referrals Name Type Priority Associated Diagnoses [...] documented as of this encounter Care Teams Health Science Specialist Relationship Specialty Start Date End Date Ann Castellon MD [address] [place] [address] PCP - General Internal Medicine 05/29/17 documented as of this encounter
--- OUTSIDE RECORDS SUMMARY | 2024-10-22 10:50 | XMS_ITS | Encounter Summary ---
Author Organization [employer] Address 75 [facility] 7t [place] [address] Care Team Providers Care Lead Recoverer Name Role Phone Ann Castellon MD Primary Care Provider [phone]- [phone] Encounter Details Date Type Department Care Team (Late st Contact Info) Description 02/06/2023 Orders Only [facility] CHC MED & PEDS [address] [place], [place] [phone] Ann Castellon MD [address] [place] [address] Type 2 diabetes mellitus with hyperglycemia, with long-term current use of insulin ([facility]) (Primary Dx) Social History Tobacco Use Types [...] Description 10/29/2024 1:30 PM EDT Medication Management [facility] CHC MED & PEDS [address] [place] [address] Brissa Calixto, PharmD [address] [place] [address] 11/30/2024 1:45 PM EDT Office Visit [facility] CHC MED & PEDS [address] [place] [address] Ann Castellon MD [address] [place] [address] 03/18/2025 2:30 PM EDT Office Visit [facility] OPTOMETRY [address] [place] [address] Mirtha Nicolas, OD [address] [place] [address] documented as of this encounter Procedures Procedure Name Priority Date/Time Associated Diagnosis Comments HEMOGLOBIN A1C Routine 03/13/2023 10:46 AM EDT Type 2 diabetes mellitus with hyperglycemia, with long-term current use of insulin ([facility]) BI MAMMOGRAM DIAGNOSTIC TOMOSYNTHESIS LEFT Routine 02/20/2023 2:20 PM EDT documented in this encounter Results * (ABNORMAL) Hemoglobin A1c (03/13/2023 10:46 AM EDT) Hemoglobin A1c 9.6(H) <6.0 % [facility] Comment:Hemoglobin A1C Refer ence Range Adults: 4.8 - 6.0 % Non diabetic: < 6.0 % Goal: < 7.0 %Additional Action Suggested: > 8.0 %Note: Hemoglobin A1c results are invalid for patients with abnormal amounts of HbF. Blood transfusions may impact the HbA1c concentration in the patient sample. Estimated Average Glucose 229 mg/dL [facility] Comment:eAG = Estimated ave rage glucose which is %A1C expressed asaverage glucose, using the formula of the Z9A-FafnkwtCobucyu Glucose study (ADAG), Diabetes Care, Vol.31,#8,Aug. 2008 Blood Venous blood specimen / Unknown 03/13/2023 10:46 AM EDT 03/13/2023 2:42 PM EDT us Ann Castellon MD LAB BLOOD ORDERABLES Final Result [facility] [address] [place] [address] [phone] * BI Mammogram Diagnostic Tomosynthesis Left (02/20/2023 2:20 PM EDT) Anatomical Region Laterality Modality Breast Left Mammography 02/20/2023 2:20 PM EDT Narrative 02/20/2023 2:44 PM EDT ? [facility] [place] ? [address] ?[place] [address] ? Mammography Report ? Signed ? Patient: Avelar,Patti ?MR#: [id number] ?? 57 ? : 1970 ?Acct:[id number] ? Age/Sex: 52 / F ?ADM Date: 02/20/23 ? Loc: HO.MAMMO ? Attending Dr: Ann Castellon MD ? Ordering Physician: Ann Castellon MD ?Results: 3.6MProbably Benign Finding - Short 6 M F/U ?? Suggested ? Date of Service: 02/20/23 ?Follow Up: 6 Month F/U ? Procedure(s): MM tomosynthesis diagnostic LT ?? Accession Number(s): [id number] ? cc: Ann Castellon MD ? EXAMINATION: [...] 1440 ? DD/ 1420 ? TD/TT: ? Java Developer Consultant: ? Procedure Note Donsethter, Image - 02/21/2023 [facility] [address] [place] [address] Mammography Report Signed Patient: Patti AvelarMR#: [id number] 57 : 1970Acct:[id number] Age/Sex: 52 / FADM Date: 02/20/23 Loc: HO.MAMMO Attending Dr: Ann Castellon MD Ordering Physician: Ann Castellon MD Results: 3.6MProbably Benign Finding - Short 6 M F/U Suggested Date of Service: 02/20/23Follow Up: 6 Month F/U Procedure(s): MM tomosynthesis diagnostic LT Accession Number(s): [id number] cc: Ann Castellon MD EXAMINATION: MM DIAGNOSTIC [...] in OV> 02/20/23 1440 DD/ 1420 TD/TT: Java Developer Consultant: Ann Castellon MD IMG BI PROCEDURES Edited Re sult - Final documented in this encounter Visit Diagnoses Diagnosis Type 2 diabetes mellitus with hyperglycemia, with long-term current use of insulin ([facility])- Primary documented in this encounter Additional Health Concerns Assessment Noted Time PHQ-9 Depression Total Score: 2 07/03/19 23 10:01 AM EST documented as of this encounter Care Teams Lead Recoverer Relationship Specialty Start Date End Date Ann Castellon MD [address] [place] [address] PCP - General Internal Medicine 05/29/17 documented as of this encounter
--- OUTSIDE RECORDS SUMMARY | 2024-10-22 10:50 | XMS_ITS | Encounter Summary ---
Author Organization [employer] Address 75 [facility] 7t [place] [address] Care Team Providers Care Community Service Manager Name Role Phone Ann Castellon MD Primary Care Provider [phone]- [phone] Reason for Referral * Consultation (Routine) - Authorized Specialty Diagnoses / Procedures Referred By Estephanie correa Referred To Contact Nephrology Diagnoses Stage 3a chronic kidney disease (CMS/HCC) Ann Castellon MD [address] [place] [address] Phone: tel: fax: [facility] [address] [place], [place] Phone: tel: fax: Referral ID Status Reason Start Date Expiration Date Visits Requested Visits Authorized [id number] Authorized Specialty Services Required 08/28/2024 08/28/2025 1 1 * Imaging (Routine) - Authorized Specialty Diagnoses / Procedures Referred By Estephanie correa Referred To Contact Radiology Diagnoses Transaminitis Procedures US Abdomen Complete Ann Castellon MD [address] [place] [address] Phone: tel: fax: [address] Phone: tel: fax: Referral ID Status Reason Start Date Expiration Date V isits Requested Visits Authorized [id number] Authorized 08/28/2024 08/28/2025 1 1 * Imaging (Routine) - Authorized Specialty Diagnoses / Procedures Referred By Contac t Referred To Contact Radiology Diagnoses Stage 3a chronic kidney disease (CMS/HCC) Procedures US RENAL BI Ann Castellon MD [address] [place] [address] Phone: tel: fax: [address] Phone: tel: fax: Referral ID Status Reason Start Date Expiration Date V isits Requested Visits Authorized [id number] Authorized 08/28/2024 08/28/2025 1 1 Encounter Details Date Type Department Care Team (Latest Contact Info) Description 08/28/2024 Orders Only [facility] MEDICINE [address] [place] [address] Ann Castellon MD [address] [place] [address] Hypercholesterolemia (Primary Dx); Stage 3a chronic kidney disease (CMS/HCC); Transaminitis Social History Tobacco Use Types Packs/Day Years [...] 1:30 PM EDT Medication Management [facility] MED & PEDS [address] [place] [address] Brissa Calixto, PharmD [address] [place] [address] 11/30/2024 1:45 PM EDT Office Visit [facility] MED & PEDS [address] [place] [address] Ann Castellon MD [address] [place] [address] 03/18/2025 2:30 PM EDT Office Visit [facility] OPTOMETRY [address] [place] [address] Mirtha Nicolas, OD [address] [place] [address] Scheduled Orders Name Type Priority Associated Diagnoses Orde r Schedule US RENAL BI Imaging Routine Stage 3a chronic kidney disease (CMS/HCC) Expected: 08/28/2024, Expires: 08/28/2025 US Abdomen Complete Imaging Routine Transaminitis Expected: 08/28/2024, Expires: 08/28/2025 Scheduled Referrals Name Type Priority Associated Diagnoses Order Schedule Referral to Nephrology Outpatient Referral Routine Stage 3a chronic kidney disease (CMS/HCC) Expected: 08/28/2024 (Approximate), Expires: 08/28/2025 documented as of this encounter Visit Diagnoses Diagnosis Hypercholesterolemia- Primary Pure hypercholesterolemia Stage 3a chronic kidney disease (CMS/HCC) Transaminitis Nonspecific elevation of levels of transaminase or lactic acid dehydrogenase (LDH) documented in this encounter Additional Health Concerns Assessment Noted Time PHQ-9 Depression Total Score: 9 04/29/20 24 10:50 AM EST documented as of this encounter Care Teams Community Service Manager Relationship Specialty Start Date End Date Ann Castellon MD [address] [place] [address] PCP - General Internal Medicine 05/29/17 documented as of this encounter
--- OUTSIDE RECORDS SUMMARY | 2024-10-22 10:50 | XMS_ITS | Encounter Summary ---
Author Organization [employer] Address [address] [facility] 7t [place] [address] Care Team Providers Care Official Court Interpreter Name Role Phone Ann Castellon MD Primary Care Provider [phone]- [phone] Encounter Details Date Type Department Care Team (Late st Contact Info) Description 05/30/2022 Abstract [facility] MEDICINE [address] [place] [address] ProviderAnnabelle MD Social History Tobacco Use Types [...] Description 10/29/2024 1:30 PM EDT Medication Management [facility] MED & PEDS [address] [place] [address] Brissa Calixto, PharmD [address] [place] [address] 11/30/2024 1:45 PM EDT Office Visit [facility] MED & PEDS [address] [place], [place] [phone] Ann Castellon MD 505 [place] [address] 03/18/2025 2:30 PM EDT Office Visit [facility] OPTOMETRY [address] [place] [address] Mirtha Nicolas, OD [address] [place] [address] documented as of this encounter Visit Diagnoses Not on filedocumented in this encounter Care Teams Official Court Interpreter Relationship Specialty Start Date End Date Ann Castellon MD [address] [place] [phone] PCP - General Internal Medicine 05/29/17 documented as of this encounter
--- OUTSIDE RECORDS SUMMARY | 2024-10-22 10:50 | XMS_ITS | Encounter Summary ---
Author Organization [employer] Address [address] [facility] 7t [place] [address] Care Team Providers Care Stoker Installer Name Role Phone Ann Castellon MD Primary Care Provider [phone]- [phone] Encounter Details Date Type Department Care Team (Latest Contact Info) Description 09/16/2023 Orders Only [facility] CHC MED & PEDS [address] [place], [place] [phone] Ann Castellon MD 505 [place], [place] [phone] Hypercholesterolemia (Primary Dx) Social History Tobacco Use [...] Description 10/29/2024 1:30 PM EDT Medication Management [facility] MED & PEDS [address] [place] [address] Brissa Calixto, PharmD 230 [place] [address] 11/30/2024 1:45 PM EDT Office Visit [facility] MED & PEDS [address] [place] [address] Ann Castellon MD 505 [place] [address] 03/18/2025 2:30 PM EDT Office Visit [facility] OPTOMETRY [address] [place] [address] Fidencio, Mirtha, OD [address] [place] [address] documented as of this encounter Visit Diagnoses Diagnosis Hypercholesterolemia- Primary Pure hypercholesterolemia documented in this encounter Additional Health Concerns Assessment Noted Time PHQ-9 Depression Total Score: 2 07/03/19 23 10:01 AM EST documented as of this encounter Care Teams Stoker Installer Relationship Specialty Start Date End Date Ann Castellon MD 505 [place] [address] PCP - General Internal Medicine 05/29/17 documented as of this encounter
--- OUTSIDE RECORDS SUMMARY | 2024-10-22 10:50 | XMS_ITS | Clinical Summary ---
Author Organization [employer] Address 75 [facility] 7t [place] [address] Care Team Providers Care Fiscal Specialist Name Role Phone Ann Castellon MD Primary Care Provider +1- [phone] Allergies No known active allergies Medications hydrOXYzine [...] Blood Gluc Sensor (FreeStyle Dariusz 2 Sensor) john douglas french centerc Use as directed Active Continuous Blood Gluc Character Actor (FreeStyle Dariusz 2 Ball) device Use as directed Active Diclofenac Sodium [...] DAILY DIRECTED Active Blood Glucose Monitoring Suppl (Get Satisfaction Lite) w/Device kit TEST BLOOD SUGAR TWICE [...] penIndications:Ty pe 2 diabetes mellitus with hyperglycemia ([facility]) INJECT 40 UNITS SUBCUTANEOUSLY EVERY NIGHT AT BEDTIME 15 mL 11 Active amitriptyline (Elavil) 10 MG tabletIndications :Type 2 diabetes mellitus with diabetic polyneuropathy ([facility]) TAKE ONE TABLET EVERY NIGHT AT BEDTIME 30 tablet 5 Active atorvastatin (Lipitor) 80 MG tabletIndications :Hypercholesterol emia TAKE ONE TABLET EVERY MORNING 30 tablet 11 Active isosorbide mononitrate ER (Imdur) 60 MG 24 hr tablet TAKE ONE TABLET EVERY MORNING 90 tablet 3 Active FREESTYLE LITE test strip TEST BLOOD SUGAR THREE TIMES DAILY 250 strip 3 Active gabapentin (Neurontin) 800 MG tablet TAKE ONE TABLET THREE TIMES DAILY THREE TIMES DAILY IN THE MORNING, AT NOON, AND AT BEDTIME 90 tablet 2 Active Trulicity 4.5 MG/0.5ML solution auto-injectorIndi cations:Type 2 diabetes mellitus with diabetic polyneuropathy, with long-term current use of insulin ([facility]) INJECT ONE PEN (=4.5MG) SUBCUTANEOUSLY ONCE A WEEK DIRECTED 2 mL 025 Active fluconazole (Diflucan) 150 MG tabletIndications :Paronychia of finger of right hand 1 tablet once for 2 weeks 2 tablet Active fenofibrate (Tricor) 48 MG tabletIndications :Hypercholesterol emia Take 1 tablet (48 mg) by mouth Once per day. 30 tablet 025 2025 Active Bisacodyl EC 5 MG EC tabletIndications :Other constipation TAKE ONE TABLET DAILY NEEDED FOR CONSTIPATION 90 tablet 025 Active bisacodyl (Dulcolax) 5 MG EC tabletIndications :Other constipation Take 1 tablet (5 mg) by mouth if needed each day for constipation. Do not crush, chew, or split. 30 tablet 025 2024 Discontinued Active Problems Problem Noted Date Diagnosed Date Lumbar radiculopathy 05/30/2022 Raised TSH level 04/29/2020 Coronary artery disease invo lving [place] coronary artery of [place] heart without angina pectoris 11/13/2017 Hypercholesterolemia 11/13/2017 Chronic pain 09/16/2017 Shoulder pain 09/16/2017 Kidney stone 08/14/2017 Essential hypertension 07/10/2017 Type 2 diabetes mellitus 07/10/2017 Encounters Date Type Department Care Team Description 10/01/2024 Refill [facility] MED & PEDS [address] [place] [address] Ann Castellon MD Other constipation 08/28/2024 Telephone [facility] MEDICINE [address] [place] [address] Ann Castellon MD 08/28/2024 Telephone [facility] MEDICINE [address] [place] [address] Ann Castellon MD 08/28/2024 Orders Only [facility] MEDICINE [address] [place] [address] Ann Castellon MD Hypercholesterolemia (Primary Dx); Stage 3a chronic kidney disease (CMS/HCC); Transaminitis 08/28/2024 Population Health Risk Score [facility] () Department [address] [place] [phone] Provider, Population Health Generic 08/27/2024 2:00 PM EDT Office Visit [facility] MED & PEDS [address] [place] [address] Ann Castellon MD Essential hypertension (Primary Dx); Type 2 diabetes mellitus with hyperglycemia, with long-term current use of insulin (CMS/HCC); Paronychia of finger of right hand; Dietary counseling; Exercise counseling; Encounter for immunization; Other constipation 08/27/2024 Travel 08/20/2024 Patient Outreach [facility] MED & PEDS [address] [place] [address] Ann Castellon MD Pre-visit Planning (SDOH negative, Tobacco screening positive.) 08/07/2024 Refill [facility] CHC MED & PEDS [address] [place] [address] Ann Castellon MD Type 2 diabetes mellitus with diabetic polyneuropathy, with long-term current use of insulin ([facility]) 08/07/2024 Refill [facility] MEDICINE [address] [place] [address] Ann Castellon MD 08/05/2024 Refill [facility] CHC MED & PEDS [address] [place] [address] Ann Castellon MD Hypercholesterolemia from Last 3 Months Immunizations Name Administration [...] 08/27/2024 2:18 PM EDT Plan of Treatment Upcoming Encounters Date Type Department Care Team (Late st Contact Info) Description 10/29/2024 1:30 PM EDT Medication Management [facility] MED & PEDS [address] [place] [address] Brissa Calixto, PharmD 230 [place] [address] 11/30/2024 1:45 PM EDT Office Visit [facility] CHC MED & PEDS [address] [place] [address] Ann Castellon MD 505 [place] [address] 03/18/2025 2:30 PM EDT Office Visit [facility] OPTOMETRY [address] [place] [address] Mirtha Nicolas, OD [address] [place] [address] Health Maintenance Due Date Last Done Comments [...] 08/26/2024 08/27/2023, 08/27/2023, 08/27/2023, Additional history exists Hepatitis B Vaccines (2 of 3 - 19+ 3-dose series) 09/24/2024 08/27/2024 Diabetes: Hemoglobin A1C 11/27/2024 025, 04/15/2024, 08/27/2023, Additional history exists Eye Exam 03/17/2025 03/17/2024, 06/2023, 03/17/2024, Additional history exists Alcohol/Substance Use Screening 04/29/2025 04/29/2024 Depression Screening 04/29/2025 04/29/2024, 04/29/20 SDOH Screening 08/20/2025 08/20/2024 Lipid Panel 08/27/2025 08/27/2024, 08/15, 03/09/2022 Tobacco Screening 08/27/2025 08/27/2024 Colorectal Cancer Screening 10/08/2026 FIT DNA/Cologuard 10/08/2026 10/09/2023 DTaP/Tdap/Td Vaccines (2 - Td or Tdap) 05/22/2027 05/22/2017 RSV Patients and Patients Aged 60 years or older (1 - 1-dose 75+ series) 2044 Zoster Vaccines Completed 08/25/2021, 02/07/2021 Pneumococcal Vaccine: 50+ Years Completed 08/27/2023, 08/31/2019 Hepatitis C Screening Completed 08/27/2024, 024 HIB Vaccines Aged Out No longer eligi [...] with long-term current use of insulin (CMS/HCC) HEPATITIS C AB W/REFL TO HCV RNA, QN, PCR Routine 08/27/2024 2:52 PM EDT Essential hypertension Type 2 diabetes mellitus with hyperglycemia, with long-term current use of insulin ([facility]/HCC) LIPID PANEL, STANDARD Routine 08/27/2024 2:52 PM EDT Essential hypertension Type 2 diabetes mellitus with hyperglycemia, with long-term current use of insulin (CMS/[facility]) CBC WITH AUTO DIFFERENTIAL Routine 08/27/2024 2:52 PM EDT Essential hypertension Type 2 diabetes mellitus with hyperglycemia, with long-term current use of insulin ([facility]) POCT GLYCATED HEMOGLOBIN, TOTAL Routine 08/27/2024 2:42 PM EDT Type 2 diabetes mellitus with hyperglycemia, with long-term current use of insulin ([facility]) POCT GLUCOSE Routine 08/27/2024 2:42 PM EDT Type 2 diabetes mellitus with hyperglycemia, with long-term current use of insulin ([facility]) LAB COLOGUARD?? COLON CANCER SCREEN Routine 10/09/2023 10:30 AM EDT Screening for colon cancer BI MAMMOGRAM DIAGNOSTIC TOMOSYNTHESIS LEFT Routine 02/20/2023 2:20 PM EDT ALBUMIN, RANDOM URINE W/CREATININE Routine 03/09/2022 9:11 AM EDT ZZZ HISTORICAL HPV MRNA E6/E7 Routine 11/26/2017 3:33 PM EDT from Last 3 Months or Most Recently Relevant to Health Maintenance Results * TSH W/Reflex to FT4 (08/27/2024 2:52 PM EDT) TSH reflex Free T4 2.06 0.32 - 4.0 uIU/mL [facility] Blood Venous blood specimen / Unknown 08/27/2024 2:52 PM EDT 08/27/2024 5:37 PM EDT us Ann Castellon MD LAB BLOOD ORDERABLES Final Result [facility] [address] [place], [place] [phone] * (ABNORMAL) CBC auto differential (08/27/2024 2:52 PM EDT) White Blood Count 11.2(H) 4.8 - 10.8 X10*3/uL [facility] Red Blood Count 3.95(L) 4.20 - 5.50 X10*6/uL [facility] Hemoglobin 11.6(L) 12.0 - 16.0 g/dl [facility] Hematocrit 36.0(L) 37.0 - 47.0 % [facility] Mean Corpuscular Volume 91.1 80.0 - 98.0 fL [facility] Mean Corpuscular Hemoglobin 29.4 27.0 - 33.0 pg [facility] Mean Corpuscular HGB Conc 32.2 31.0 - 35.0 g/dl [facility] Red Cell Distribution Width 13.8 11.0 - 16.0 % [facility] Platelet Count 374 160 - 400 X10*3/uL [facility] Mean Platelet Volume 10.1 9.4 - 12.3 fL [facility] Neutrophils Percent Auto 64.3 45 - 73 % [facility] Imm Gran Pct Auto 0.6(H) 0.0 - 0.4 % [facility] Lymphocytes Percent Auto 26.1 20 - 40 % [facility] Monocytes Percent Auto 5.8 2 - 11 % [facility] Eosinophils Percent Auto 2.1 0 - 4 % [facility] Basophils Percent Auto 1.1 0 - 2 % [facility] NRBC Pct Auto 0.0 0.0 - 0.2 /100WBC [facility] Neutrophils Absolute Auto 7.2 2.0 - 8.3 x10*3/uL [facility] Imm Gran Abs Auto 0.07(H) 0.00 - 0.03 X10*3/uL [facility] Lymphocytes Absolute Auto 2.9 1.2 - 4.9 X10*3/uL [facility] Monocytes Absolute Auto 0.7 0.1 - 1.2 X10*3/uL [facility] Eosinophils Absolute Auto 0.2 0.0 - 0.4 X10*3/uL [facility] Basophils Absolute Auto 0.1 0.0 - 0.2 X10*3/uL [facility] NRBC Abs Auto 0.000 0.0 - 0.012 X10*3/uL [facility] Blood Venous blood specimen / Unknown 08/27/2024 2:52 PM EDT 08/27/2024 5:37 PM EDT us Ann Castellon MD LAB BLOOD ORDERABLES Final Result Performing Organization Address [facility]/ZIP Co de Phone Number [facility] [address] [place] [phone] * Hepatitis C Antibody with Reflex to HCV, RNA, Quantitative, Real-Time PCR (08/27/2024 2:52 PM EDT) Pathologist [facility] Hepatitis C Antibody Nonreactive Nonreactive [facility] Comment:Antibodies to HCV no t detected; does not exclude early acuteHCV infection. Blood Venous blood specimen / Unknown 08/27/2024 2:52 PM EDT 08/27/2024 5:37 PM EDT us Ann Castellon MD LAB BLOOD ORDERABLES Final Result Performing Organization Address [facility] Co de Phone Number [facility] [address] [place] [address] [phone] * (ABNORMAL) Lipid Panel, Standard (08/27/2024 2:52 PM EDT) Triglycerides 286(H) <150 mg/dL [facility] Comment:Desirable Triglyceri de: less than 150 mg/dLBorderline High Triglyceride 150-199 mg/dLHigh Triglyceride: 200-499 mg/dLVery High Triglyceride: greater than or equal to 5OO mg/dL Cholesterol 138 <200 mg/dL [facility] Comment:Desirable Cholestero l: less than 200 mg/dLBorderline High Cholesterol: 200-239 mg/dLHigh Cholesterol: greater than 239 mg/dL LDL Cholesterol Calculated 52 <100 mg/dL [facility] Comment:Desirable LDL: less than 100 mg/dLNear Optimal/Above Optimal LDL: 110- 129 mg/dLBorderline High LDL: 130-159 mg/dLHigh LDL: 160-189 mg/dLVery High LDL: greater than or equal to 190 mg/dL HDL Cholesterol 29(L) >40 mg/dL [facility] Comment:Desirable HDL: great er than 40 mg/dL Note: This HDL assay may give artificially low results in patients with liver disease. Blood Venous blood specimen / Unknown 08/27/2024 2:52 PM EDT 08/27/2024 5:37 PM EDT us Ann Castellon MD LAB BLOOD ORDERABLES Final Result [facility] [address] [place] [address] [phone] * (ABNORMAL) Comprehensive Metabolic Panel (08/27/2024 2:52 PM EDT) Sodium 139 135 - 145 mmol/L [facility] Potassium 4.1 3.3 - 5.1 mmol/L [facility] Chloride 106 96 - 108 mmol/L [facility] Carbon Dioxide 23 22 - 29 mmol/L [facility] Anion Gap 14 12 - 20 [facility] Urea Nitrogen (BUN) 23(H) 9 - 16 mg/dL [facility] Creatinine, Serum 1.36 0.5 - 1.4 mg/dL [facility] Estimated Glomerular Filt Rate 40 [facility] Comment:Chronic Kidney Disea se: Estimated GFR < 60 mL/min/1.57h5Betgtz Kidney Disease: Estimated GFR < 15 mL/min/1.73m2 Glucose 145(H) 60 - 115 mg/dL [facility] Calcium 9.5 8.4 - 10.2 mg/dL [facility] Bilirubin, Total 0.4 0.0 - 1.0 mg/dL [facility] Aspartate Amino Transferase 49(H) 5 - 31 U/L [facility] Alanine Aminotransferase 55(H) 0 - 31 U/L [facility] Total Protein 7.8 6.5 - 8.0 g/dL [facility] Albumin Level 4.4 3.5 - 5.0 g/dL [facility] Alkaline Phosphatase 87 39 - 117 U/L [facility] Blood Venous blood specimen / Unknown 08/27/2024 2:52 PM EDT 08/27/2024 5:37 PM EDT Ann Castellon MD LAB BLOOD ORDERABLES Final Result Performing Organization Address City/State/[facility] Co de Phone Number [facility] [address] [place] [phone] * (ABNORMAL) POCT HGB A1C (08/27/2024 2:42 PM EDT) Hemoglobin A1C 10.4(A) 4.0 - 6.0 % QC Media Lot # [id number] Lot# Expiration Date ,026 Blood 08/27/2024 2:42 PM EDT us Ann Castellon MD POINT OF CARE TEST ENTER/ED IT ORDERABLES Final Result * POCT Glucose (08/27/2024 2:42 PM EDT) Glucose Blood, POC 172 60 - 200 mg/dL QC Media Lot # [id number] Lot# Expiration Date 732,025 Blood Capillary blood specimen / Unknown 08/27/2024 2:42 PM EDT us Ann Castellon MD POINT OF CARE TEST ENTER/ED IT ORDERABLES Final Result * Cologuard?? colon cancer screening (10/09/2023 10:30 AM EDT) Cologuard Result Negative Negative 10/17/19 12:08 PM EDT [facility] (CLIA #:[id number]) Comment: NEGATIVE TEST RESULT. A negative Cologuard [...] screened with both Cologuard and colonoscopy. (Vanessa Pemberton et al, N Engl J Med 2014;370(14):1286- 1297) The normal value (reference range) for this assay is negative. COLOGUARD RE-SCREENING RECOMMENDATION: Periodic colorectal cancer screening is an important part of preventive healthcare for asymptomatic individuals at average risk for colorectal cancer. ??Following a negative Cologuard result, the [place] Cancer Society and U.S. Multi-Society Task Force screening guidelines recommend a Cologuard re-screening interval of 3 years. References: [place] [employer] Guideline for Colorectal Cancer Screening: https://www.cancer.org/cancer/pdqjg-ntwgju-yemcej/xzjkksncv-kwdsytpsq-lohbbyh/ac s-rec ommendations.html.; Claude MOYA, Efren RIVERA, Spencer TorresK, Colorectal Cancer Screening: Recommendations for Physicians and Patients from the U.S. Multi-Society Task Force on Colorectal Cancer Screening , Am J Gastroenterology 2017; 112:8405-3534. TEST DESCRIPTION: Composite algorithmic analysis of stool [...] (Vanessa Guillen al, N Engl J Med 2014;370(14):8758-1586.) Cologuard may produce a false negative or false positive result (no colorectal cancer or precancerous polyp present at colonoscopy follow up). A negative Cologuard test result does not guarantee the absence of CRC or advanced adenoma (pre-cancer). The current Cologuard screening interval is every 3 years. ([employer] Cancer Society and U.S. Multi-Society Task Force). Cologuard performance data in a 10,000 patient pivotal study using colonoscopy as the reference method can be accessed at the following location: www.[employer]/results. Additional description of the Cologuard test process, warnings and precautions can be found at www.cologuard.com. Stool specimen (specimen) Rectal contents / Unknown 10/09/2023 10:30 AM EDT 10/10/2023 10:47 AM EDT us Ann Castellon MD LAB MOLECULAR DIAGNOSTICS O RDERABLES Final Result [facility] (CLIA #:[id number]) [place] [address], * BI Mammogram Diagnostic Tomosynthesis Left (02/20/2023 2:20 PM EDT) Anatomical Region Laterality Modality Breast Left Mammography 02/20/2023 2:20 PM EDT Narrative 02/20/2023 2:44 PM EDT ? [facility] ? [address] ?[place], [place] [address] ? Mammography Report ? Signed ? Patient: Avelar,Patti ?MR#: [id number] ?? 57 ? : 1970 ?Acct:[id number] ? Age/Sex: 52 / F ?ADM Date: 02/20/23 ? Loc: HO.MAMMO ? Attending Dr: Ann Castellon MD ? Ordering Physician: Ann Castellon MD ?Results: 3.6MProbably Benign Finding - Short 6 M F/U ?? Suggested ? Date of Service: 02/20/23 ?Follow Up: 6 Month F/U ? Procedure(s): MM tomosynthesis diagnostic LT ?? Accession Number(s): [id number] ? cc: Ann Castellon MD ? EXAMINATION: [...] 1440 ? DD/ 1420 ? TD/TT: ? Concrete Rod Buster: ? Procedure Note Angelica, Image - 02/21/2023 [facility] [address] [place] [address] [place] [address] Mammography Report Signed Patient: Patti AvelarMR#: [id number] 57 : 1970Acct:[id number] Age/Sex: 52 / FADM Date: 02/20/23 Loc: HO.MAMMO Attending Dr: Ann Castellon MD Ordering Physician: Ann Castellon MD Results: 3.6MProbably Benign Finding - Short 6 M F/U Suggested Date of Service: 02/20/23Follow Up: 6 Month F/U Procedure(s): MM tomosynthesis diagnostic LT Accession Number(s): [id number] cc: Ann Castellon MD EXAMINATION: MM DIAGNOSTIC [...] in OV> 02/20/23 1440 DD/ 1420 TD/TT: Concrete Rod Buster: us Ann Castellon MD IMG BI PROCEDURES Edited Re sult - Final * ALBUMIN, RANDOM URINE W/CREATININE (03/09/2022 9:11 AM EDT) Microalbumin Urine 0.7 See Note: mg/dL [facility] [...] Final Result [facility] [address] * HPV mRNA E6/E7 (11/26/2017 3:33 PM EDT) HPV mRNA E6/E7 Not Detected NOT DETECTED [facility] Comment: This test was performed using the APTIMA(R) HPV Assay ([employer] This assay detects E6/E7 viral messenger RNA (mRNA) from 14 high-risk HPV types (16,18,31,33,35,39,45,51, 52,56,58,59,66,68). For additional information please refer to: http://education.MyHealth[employer].D[employer]/faq/GVO138n6 (This link is being provided for informational/ educational purposes only.) The analytical performance characteristics of this assay have been determined by [place]. The modifications have not been cleared or approved by the FDA. This assay has been validated pursuant to the CLIA regulations and is used for clinical purposes. Test Performed by [facility], [employer] [place], [address] [place] [address] Zen Stafford M.D., Ph.D., Director of Laboratories , CLIA [id number] Please note: ??Effective 02/27/2016, HPV testing will be performed using [employer]'s APTIMA test which targets mRNA. Detecting mRNA instead of DNA, as in older methods, offers significant improvements in specificity. 11/26/2017 3:33 PM EDT us Zehra Hernandez CNM HISTORICAL/NON ORDERABLE LABS Final Result [facility] [address] from Last 3 Months or Most Recently Relevant to Health Maintenance Insurance C3 Care Teams Fiscal Specialist Relationship Specialty Start Date End Date Ann Castellon MD [address] [place] [phone] PCP - General Internal Medicine 05/29/17
--- OUTSIDE RECORDS SUMMARY | 2024-10-22 10:50 | XMS_ITS | Encounter Summary ---
Author Organization [employer] Address [address] [place] [address] [place] [address] Care Team Providers Care Trailer Steerer Name Role Phone Ann Castellon MD Primary Care Provider [phone] Reason for Visit * Reason Onset Date Comments returning call 06/25/2022 Encounter Details Date Type Department Care Team ([facility] Contact Info) Description 06/25/[address] [facility] MEDICINE [address] [place], [place] [phone] Ann Castellon MD [address] [place], [place] [phone] returning call Social History Tobacco Use Types [...] pt returning call Please contact pt at [phone] documented in this encounter Plan of Treatment Upcoming Encounters Date Type Department Care Team (Late Contact Info) Description 10/29/2024 1:30 PM EDT Medication Management [facility] CHC MED & PEDS [address] [place], [place] [phone] Brissa Calixto PharmD [address] [place] [address] 11/30/2024 1:45 PM EDT Office Visit [facility] CH[facility] MED & PEDS [address] [place] [address] Ann Castellon MD [address] [place] [address] 03/18/2025 2:30 PM EDT Office Visit [facility] OPTOMETRY [address] [place] [address] Mirtha Nicolas, OD [address] [place] [address] documented as of this encounter Visit Diagnoses Not on filedocumented in this encounter Care Teams Trailer Steerer Relationship Specialty Start Date End Date Ann Castellon MD [address] [place], [place] [phone] PCP - General Internal Medicine 05/29/17 documented as of this encounter
--- OUTSIDE RECORDS SUMMARY | 2024-10-22 10:50 | XMS_ITS | Clinical Summary ---
Author Organization [facility] Address [address] [place] [address] Phone Care Team Providers Care Finish Inspector Name Role Phone Ann Castellon MD Primary Care Provider [phone] Social History Tobacco Use Types Packs/Day Years Used Date Smoking Tobacco: Never Assessed Comments Unknown Sex and Gender Information Value Date Recorded Sex Assigned at Not on file Legal Sex Female 2:28 AM EST Gender Identity Not on file Sexual Orientation Not on file Plan of Treatment Upcoming Encounters Date Type Department Care Team (Late st Contact Info) Description 12/02/2024 2:45 PM EDT Consult Orthopedic Surgery - [place] [address] [id number] Brijesh Worrell, DPM [address] [address] Health Maintenance Due Date Last Done Comments Breast Cancer Screening 1969 Diabetes: Annual GFR (Glomer ular Filtration Rate) 1969 Diabetes: Annual Foot Exam 08/20/1979 Diabetes: Annual Retina Eye Exam 08/20/1979 DTaP,Tdap,and Td Vaccines (1 - Tdap) 1988 Hepatitis B Vaccines (1 of 3 - 19+ 3-dose series) 1988 Pneumococcal Vaccine: 50+ Ye ars (1 of 2 - PCV) 1988 Pneumococcal Vaccine: Pediat rics (0 to 5 Years) and At-Risk Patients (6 to 64 Years) (1 of 2 - PCV) 1988 Cervical Cancer Screening: P ap Smear 1990 Zoster Vaccines (1 of 2) 08/20/2019 COVID-19 Vaccine (2023-2 5 season) 2024 Cholesterol Screening (Lipid Panel) 09/25/2024 Colorectal Cancer Screening: Colonoscopy 09/25/2024 Depression Screening 09/25/2024 Diabetes: Annual Urine Albumin-Creatinine Ratio (uACR) 09/25/2024 Diabetes: Blood Sugar Contro l Test (HGBA1C) 09/25/2024 HIV Screening 09/25/2024 Hepatitis C Screening 09/25/2024 Social Influencers of Health Screening 09/25/2024 Influenza Vaccine (Season Ended) 2025 HIB Vaccines Aged Out No longer eligi [...] age to complete this topic Meningococcal B Vaccine Aged Out No l onger eligible based on patient's age to complete this topic RSV Immunization Patients Un sally 20 months Aged Out No longer eligible b ased on patient's age to complete this topic Varicella Vaccines Aged Out No longer eligible based on patient's age to complete this topic Insurance MEDICAID - [place] Care Teams Finish Inspector Relationship Specialty Start Date End Date Ann Castellon MD [address] [place] [id number] PCP - General Internal Medicine 09/25/24
--- OUTSIDE RECORDS SUMMARY | 2024-10-22 10:50 | XMS_ITS | Clinical Summary ---
Author Organization [facility] Address [address] [place] [phone] Phone Care Team Providers Care Juvenile Detention Officer Name Role Phone Ann Castellon MD Primary Care Provider Social History Tobacco Use Types Packs/Day Years Used Date Smoking Tobacco: Never Assessed Comments Unknown Sex and Gender Information Value Date Recorded Sex Assigned at Not on file Legal Sex Female 2:34 PM EDT Gender Identity Not on file Sexual Orientation Not on file Plan of Treatment Upcoming Encounters Date Type Department Care Team (Late st Contact Info) Description 10/30/2024 9:15 AM EDT Office Visit [facility] [address] [phone] Davon Obrien MD [address] [phone] Health Maintenance Due Date Last Done Comments Breast Cancer Screening 1969 Hepatitis B Vaccine (1 of 3 - 19+ 3-dose series) 1988 08/27/2024 Colorectal Cancer Screening: Annual FOBT 2018 Colorectal Cancer Screening: Colonoscopy 2018 Colorectal Cancer Screening: Sigmoidoscopy 2018 Diabetes: Ophthalmology Exam 08/31/2024 Diabetes: Pedal Pulse Checked 08/31/2024 Diabetes: Sensory Foot Exam 08/31/2024 Diabetes: Visual Foot Exam 08/31/2024 Diabetes: Hemoglobin A1C 11/27/2024 08/27/2024 Influenza Vaccine (Season Ended) 2025 03/15/2022, 03/30/2021, 04/01/2020, Additional history exists Pneumococcal Vaccine: 50+ Years Completed , 08/31/2019 Pneumococcal Vaccine: Peds ( 0 to 5 Years) and At-Risk Patients (6 to 49 Years) Discontinued 08/27/2023, 08/31/2019 Care Teams Juvenile Detention Officer Relationship Specialty Start Date End Date Ann Castellon MD [address] [place] [phone] PCP - General Internal Medicine 08/31/24
--- OUTSIDE RECORDS SUMMARY | 2024-10-22 10:50 | XMS_ITS | Encounter Summary ---
Author Organization [employer] Address [address] [facility] [address] [place] [address] Care Team Providers Care Process Development Associate Name Role Phone Ann Castellon MD Primary Care Provider [phone] Encounter Details Date Type Department Care Team (Late Contact Info) Description 11/28/2022 Orders Only [facility] [address] [place] [address] Ann Castellon MD [address] [place] [address] Facet arthropathy of spine (Primary Dx) Social [...] Description 10/29/2024 1:30 PM EDT Medication Management [facility] [address] [place], [place] [phone] Brissa Calixto, CaroleD [address] [place] [address] 11/30/2024 1:45 PM EDT Office Visit [facility] [address] [place] [address] Ann Castellon MD [address] [place] [address] 03/18/2025 2:30 PM EDT Office Visit 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
== END 2024-10-22 09:56 | disposition home or self-care (01) ==
LOC: HO.US 09:55
PROVIDERS: PCP Internal Medicine; Visit Provider Internal Medicine
DX: R74.01 Elevation of levels of liver transaminase levels (principal); N18.31 Chronic kidney disease, stage 3a
CPT/HCPCS: 76700

== ENCOUNTER → 2024-10-22 09:57 | Outpatient (BNV) | payer MEDICAID, SELFPAY | PROVIDERS: PCP Internal Medicine; Visit Provider Radiology Diagnostic Radiology | DX: K76.0 Fatty (change of) liver, not elsewhere classified (principal) | CPT/HCPCS: 76700 ==